=== PATIENT | female | born 1970 | race Caucasian/White ===

== ENCOUNTER → 2023-03-26 | Outpatient (CLI) | payer OTHER | END | disposition home or self-care (01) | LOC: LAB 10:00 | PROVIDERS: ATTEND Obstetrics & Gynecology | DX: R87.810 Cervical high risk human papillomavirus (HPV) DNA test positive (principal) ==

== ENCOUNTER 2023-04-28 14:57 | Emergency (ER) | payer OTHER ==
[~2023-04-28] VITALS: Ht 167.6 cm; Wt 64.2 kg
[2023-04-28 15:30] LABS: Urine Bacteria FEW /hpf (None Seen); Urine Blood Negative /uL (Negative); Urine Clarity Clear (Clear); Urine Color Yellow (Yellow); Urine Protein, UAD Negative (Negative); Urine Specific Gravity 1.025 (1.001-1.035); Urine WBC 5 /hpf (0 - 5)
[2023-04-28 16:18] VITALS: BP 110/64; PULSE 99; RESP 18; TEMP 99.3; O2SAT 96
[2023-04-28] MEDS ORDERED: CEPH500C PO (16:30)
== END 2023-04-28 16:38 | disposition home or self-care (01) ==
LOC: ER 14:57
DX: J02.9 Acute pharyngitis, unspecified (principal); T36.3X5A Adverse effect of macrolides, initial encounter; Z79.899 Other long term (current) drug therapy; Y92.89 Other specified places as the place of occurrence of the external cause
CPT/HCPCS: 81001

== ENCOUNTER 2024-08-29 08:33 | Emergency (ER) | payer OTHER ==
[~2024-08-29] VITALS: Ht 167.6 cm; Wt 62.0 kg
[~2024-08-29 08:33] MED LIST: CEPH500C PO
[2024-08-29 08:55] VITALS: BP 124/66; PULSE 77; RESP 18; TEMP 97.6; O2SAT 99
--- NOTE | 2024-08-29 09:05 | ED.PDOC ---
History of Present Illness(SKN HPI Comments A 54 YEAR OLD FEMALE PRESENTS TO THE ED WITH COMPLAINT OF SORES ON SCALP AND RASH. PATIENT STATES SHE HAS HAD SORE ON HER SCALP AND A RASH ON HER NECK AND UPPER CHEST FOR THE PAST 7 MONTHS. PATIENT REPORTS SHE HAS WENT TO SEVERAL [facility]ENT [facility] AND A [facility] WHERE SHE WAS PRESCRIBED SEVERAL CREAMS, BUT NOTES THERE HAS BEEN NO IMPROVEMENT IN HER SYMPTOMS. PATIENT DENIES FEVER, CHILLS, SHORTNESS OF BREATH, CHEST PAIN, ABDOMINAL PAIN, NAUSEA, VOMITING, HEADACHE, OR OTHER COMPLAINTS. NO OTHER SYMPTOMS OR MODIFYING FACTORS AT THIS TIME. PATIENT IS ALERT, ORIENTED X 4, AND HAS STEADY GAIT. Chief Complaint: Wound Check Time Seen by MD: 08:47 Primary Care Provider: UNKOWN History of Present Illness: Nurses Notes, Medications, Allergies Allergies: Coded Allergies: NO KNOWN ALLERGIES (Unverified , 04/28/23) Home Meds Active Scripts Methylprednisolone (Medrol Dosepak) 4 Mg Peyman, 4 MG PO UD, #21 TAB UAD Prov:BRONWYN FONG 08/29/24 Cephalexin Monohydrate (Cephalexin) 500 Mg Cap, 1 CAP PO TID, #30 CAP Prov:BRONWYN FONG 08/29/24 Clobetasol Propionate (Clobetasol Propionate) 0.05 % Oin, 1 APPLIC TOP BID, #30 GRAMS 1 Refill Prov:BRONWYN FONG 08/29/24 Cephalexin Monohydrate (Cephalexin) 500 Mg Cap, 1 CAP PO TID, #24 CAP Prov:BRONWYN FONG 04/28/23 Discontinued Scripts Methylprednisolone (Medrol Dosepak) 4 Mg Peyman, 4 MG PO UD, #21 TAB UAD Prov:BRONWYN FONG 08/29/24 Cephalexin Monohydrate (Cephalexin) 500 Mg Cap, 1 CAP PO QID, #40 CAP Prov:BRONWYN FONG 08/29/24 Information Source: Patient Mode of Arrival: Ambulatory Severity: Moderate Timing: Months Duration: Intermittent Prehospital treatment: None Location: Head (SCALP) Mechanism: Spontaneous Onset Developed: Rash Occurence: Indoors Object: None Condition of Object: None Retained Foreign Body: No Wound Type: Other (SORES) Immunization Status of Animal: Current, NA Tetanus: UTD, Unknown History of: None Associated Signs and Symptoms: Redness, Pain Past Medical History PAST MEDICAL HISTORY: Denies Surgical History: Denies all surgeries SEWER REPAIRER 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: No Pertinent SEWER REPAIRER History Family History Family History: Reviewed,noncontributory to illness Social History Smoker: Non-Smoker Alcohol: Denies ETOH Use Drugs: Denies Drug Use Lives In: Home Constitutional: denies: chills, diaphoresis, fatigue, fever, malaise, sweats, weakness, others EENTM: denies: blurred vision, double vision, ear bleeding, ear discharge, ear drainage, ear pain, ear ringing, eye pain, eye redness, hearing loss, mouth pain, mouth swelling, nasal discharge, nose bleeding, nose congestion, nose pain, photophobia, tearing, throat pain, throat swelling, voice changes, others Respiratory: denies: cough, hemoptysis, orthopnea, SOB at rest, shortness of breath, SOB with excertion, stridor, wheezing, others Cardiovascular: denies: chest pain, dizzy spells, diaphoresis, Dyspnea on exertion, edema, irregular heart beat, left arm pain, lightheadedness, palpitations, PND, syncope, others Gastrointestinal: denies: abdomen distended, abdominal pain, blood streaked bowels, constipated, diarrhea, dysphagia, difficulty swallowing, hematemesis, melena, nausea, poor appetite, poor fluid intake, rectal bleeding, rectal pain, vomiting, others Genitourinary: denies: abnormal vagina bleeding, burning, dyspareunia, dysuria, flank pain, frequency, hematuria, incontinence, pain, , vagina discharge, urgency, others Neurological: denies: dizziness, fainting, headache, left sided numbness, left sided weakness, numbness, paresthesia, pre-existing deficit, right sided num bness, right sided weakness, seizure, speech problems, tingling, tremors, weakness, others Musculoskeletal: denies: back pain, gout, joint pain, joint swelling, muscle pain, muscle stiffness, neck pain, others Integumetry: reports: rash (RASH OF UPPER CHEST AND NECK), wounds (SORES ON SCALP); denies: bruises, change in color, change in hair/nails, dryness, laceration, lesions, lumps, others Allergic/Immunocompromised: reports: Hives; denies: Difficulty Healing, Frequent Infections, Itching, others Endocrine: denies: excessive hunger, excessive sweating, excessive thirst, excessive urination, flushing, intolerance to cold, intolerance to heat, unexplained weight gain, unexplained weight loss, others Psychiatric: reports: anxiety; denies: bipolar disorder, depression, hopeless, panic disorder, schizophrenia, sleepless, suicidal, others All Other Systems: Reviewed and Negative Physical Exam General Appearance: No Apparent Distress, Normal, Other (ANXIOUS ) HEENT: Normal ENT Inspection, PERRL/EOMI, Pharynx Normal, TMs Normal Neck: Full Range of Motion, Non-Tender, Normal, Normal Inspection Respiratory: Chest Non-Tender, Lungs Clear, No Accessory Muscle Use, No Respiratory Distress, Normal Breath Sounds Cardiovascular: No Edema, No JVD, No Murmur, No Gallop, Normal Peripheral Pulses, Regular Rate/Rhythm Breast Exam: Deferred Gastrointestinal: No Organomegaly, Non Tender, No Pulsatile Mass, Normal Bowel Sounds, Soft Genitalia: Deferred Pelvic: Deferred Rectal: Deferred Extremities: No calf tenderness, Normal capillary refill, Normal inspection, Normal range of motion, Non-tender, No pedal edema Musculoskeletal : Apperance: Normal Neurologic: Alert, stitcher feeder II-XII nml as Tested, No Motor Deficits, Normal Affect, Normal Mood, No Sensory Deficits Cerebellar Function: Normal Reflexes: Normal Skin: Dry, Rash (ERYTHEMA PATCH SKIN RASH ON SIDE NECK WALL AND UPPER CHEST WALL, NO TENDERNESS AND SWELLING. PAPULAR AND MACULAR SKIN RASH ON SCALP WIKTH TENDERNESS AND MILD SWELLING, FOLLICULITIS. ), Warm Peripheral Pulses: 2+ carotid (R), 2+ carotid (L), 2+ dorsalis pedis (R), 2+ dorsalis pedis (L) Lymphatic: No Adenopathy Was a procedure done? Was a procedure done?: No Differential Diagnosis (INTG) Differential Diagnosis: Abrasion, Cellulitis, Contusion, Insect Envenomation, Puncture Wound Differential Diagnosis: Atopic dermatitis, Contact Dermatitis, Impetigo, Intertrigo, Tinea, Urticaria Differential Diagnosis: Abrasion, N/A Abscess: N/A Differential Diagnosis: N/A X-Ray, Labs, Meds, VS Vital Signs Date Time Temp Pulse Resp B/P (MAP) Pulse Ox O2 Delivery O2 Flow Rate FiO2 08/29/24 08:55 77 18 99 Room Air 08/29/24 08:55 97.6 77 18 124/66 (85) 99 97.6 08/29/24 08:43 97.6 77 18 124/66 (85) 99 Lab Test 08/29/24 09:08 Range/Units White Blood Count 11.4 H 4.4-10.8 10^3/uL Red Blood Count 5.25 H 4.0-5.20 10^6/uL Hemoglobin 16.0 12.2-16.2 g/dL Hematocrit 46.2 H 36.0-46.0 % Mean Corpuscular Volume 88.0 80.0-100.0 fL Mean Corpuscular Hemoglobin 30.5 28.0-32.0 pg Mean Corpuscular Hemoglobin Concent 34.6 32.0-36.0 g/dL Red Cell Distribution Width 13.6 11.8-14.3 % Platelet Count 368 140-450 10^3/uL Mean Platelet Volume 8.0 6.9-10.8 fL Neutrophils (%) (Auto) 44.7 37.0-80.0 % Lymphocytes (%) (Auto) 39.7 10.0-50.0 % Monocytes (%) (Auto) 10.9 0.0-12.0 % Eosinophils (%) (Auto) 3.8 0.0-7.0 % Basophils (%) (Auto) 0.9 0.0-2.0 % Neutrophils # (Auto) 5.1 1.6-8.6 10 ^3/uL Lymphocytes # (Auto) 4.5 0.4-5.4 10 ^3/uL Monocytes # (Auto) 1.2 0-1.3 10 ^3/uL Eosinophils # (Auto) 0.4 0-0.8 10 ^3/uL Basophils # (Auto) 0.1 0-0.2 10 ^3/uL Nucleated Red Blood Cells 0.1 % Sodium Level 140 136-145 mmol/L Potassium Level 3.9 3.5-5.1 mmol/L Chloride Level 109 H 98-107 mmol/L Carbon Dioxide Level 27 20-31 mmol/L Anion Gap 4 L 5-15 Blood Urea Nitrogen 21 9-23 mg/dL Creatinine 0.82 0.550-1.02 mg/dL Glomerular Filtration Rate Calc 85 >90 mL/min BUN/Creatinine Ratio 25.6 H 10.0-20.0 Serum Glucose 89 74-106 mg/dL Calcium Level 10.1 8.7-10.4 mg/dL X-Ray, Labs, Meds, VS Comment EXTERNAL MEDICAL RECORDS REVIEWED: [NONE] INDEPENDENT HISTORIANS: [NONE] SOCIAL DETERMINANTS OF HEALTH: [NONE] LABS ORDERED: CBC, BMP REVIEWED AND INTERPRETED RESULTS: WBC 11.4 IMAGING ORDERED: NONE TREATMENTS ORDERED: NO PROCEDURES PERFORMED: NONE CRITICAL CARE TIME: NONE I HAVE DISCUSSED THE PATIENT WITH THE ATTENDING PHYSICIAN DR. POWELL AND HE AGREES WITH THE PATIENT'S PLAN OF CARE AND DISPOSITION. BASED ON HISTORY OF PRESENT ILLNESS, AND PHYSICAL EXAM, PATIENT WILL BE DISCHARGED HOME. DISCUSSED PLAN FOR DISCHARGE HOME WITH RX []. MEDICATION WARNINGS GIVEN. SHARED DECISION MAKING: PATIENT INSTRUCTED TO FOLLOW UP WITH PRIMARY CARE PROVIDER IN 1-2 DAYS FOR RE-EVALUATION OF SYMPTOMS. PATIENT VERBALIZES UNDERSTAN DING TO RETURN TO ED FOR NEW OR WORSENING SYMPTOMS OR IF FOLLOW UP WITH PCP CANNOT BE OBTAINED. PATIENT FEELS COMFORTABLE GOING HOME AT THIS TIME. ALL QUESTIONS ADDRESSED AT TIME OF DISCHARGE. Time of 1ST Reevaluation: 10:07 Reevaluation 1ST: Improved Patient Education/Counseling: Diagnosis, Treatment, Need For Follow Up Family Education/Counseling: Diagnosis, Treatment, Need For Follow Up Medical Screening: No EMC Exist At This Time Departure 1 Departure Time of Disposition: 10:07 Impression: Primary Impression: Allergic reaction Qualified Codes: T78.40XA - Allergy, unspecified, initial encounter Additional Impression: Folliculitis Disposition: HOME / SELF CARE / HOMELESS Condition: Stable Additional Instructions: FOLLOW-UP WITH PCP IN 1 TO 2 DAYS. TAKE MEDICATIONS PRESCRIBED. RETURN TO ED FOR ANY NEW OR WORSENING SYMPTOMS. e-Prescriptions Methylprednisolone (Medrol Dosepak) 4 Mg Peyman 4 MG PO UD, #21 TAB UAD Prov: BRONWYN FONG 08/29/24 Cephalexin Monohydrate (Cephalexin) 500 Mg Cap 1 CAP PO TID, #30 CAP Prov: BRONWYN FONG 08/29/24 Clobetasol Propionate (Clobetasol Propionate) 0.05 % Oin 1 APPLIC TOP BID, #30 GRAMS 1 Refill Prov: BRONWYN FONG 08/29/24 Discharged With: Self Critical Care Note Critical Care Time?: No Stability Stability form required: No I personally scribed for BRONWYN FONG ([email or web address]) on 08/29/24 at 09:05. Electronically submitted by Joesph Zheng ([email or web address]). I personally scribed for BRONWYN FONG ([email or web address]) on 08/29/24 at 09:08. Electronically submitted by Joesph Zheng ([email or web address]). I personally scribed for BRONWYN FONG ([email or web address]) on 08/29/24 at 09:57. Electronically submitted by Joesph Zheng ([email or web address]). I personally scribed for BRONWYN FONG ([email or web address]) on 08/29/24 at 10:04. Electronically submitted by Joesph Zheng ([email or web address]). BRONWYN FONG Aug 29, 2024 09:05
[2024-08-29 09:32] LABS: Basophils # (auto) 0.1 10 ^3/uL (0-0.2); Basophils % (auto) 0.9 % (0.0-2.0); Eosinophils # (auto) 0.4 10 ^3/uL (0-0.8); Eosinophils % (auto) 3.8 % (0.0-7.0); Hematocrit 46.2 % (36.0-46.0); Lymphocytes # (auto) 4.5 10 ^3/uL (0.4-5.4); Lymphocytes % (auto) 39.7 % (10.0-50.0); Mean Corpuscular Hemoglobin 30.5 pg (28.0-32.0); Mean Corpuscular Hgb Conc. 34.6 g/dL (32.0-36.0); Monocytes # (auto) 1.2 10 ^3/uL (0-1.3); Monocytes % (auto) 10.9 % (0.0-12.0); Neutrophils # (auto) 5.1 10 ^3/uL (1.6-8.6); Neutrophils % (auto) 44.7 % (37.0-80.0); Nucleated Red Blood Cells % 0.1 %; Platelet Count (auto) 368 10^3/uL (140-450); Red Blood Cells 5.25 10^6/uL (4.0-5.20); Red Cell Distribution Width 13.6 % (11.8-14.3); White Blood Cell 11.4 10^3/uL (4.4-10.8)
[2024-08-29 09:49] LABS: Potassium 3.9 mmol/L (3.5-5.1); Sodium 140 mmol/L (136-145)
[2024-08-29 09:50] LABS: Anion Gap 4 (5-15); Calcium 10.1 mg/dL (8.7-10.4); Carbon Dioxide 27 mmol/L (20-31)
[2024-08-29 09:51] LABS: Chloride 109 mmol/L (98-107)
[2024-08-29] MEDS ORDERED: INDO50CA82 PO (09:54)
[2024-08-29] MEDS ORDERED: METH4PAK PO (09:54)
[2024-08-29] MEDS ORDERED: CEPH500C PO (09:54)
[2024-08-29 09:55] LABS: BUN/Creatinine Ratio 25.6 (10.0-20.0); Blood Urea Nitrogen 21 mg/dL (9-23); Glucose 89 mg/dL (74-106)
[2024-08-29] MEDS ORDERED: CLOB0.05 TOP (10:05)
== END 2024-08-29 10:10 | disposition home or self-care (01) ==
LOC: ER 08:33
DX: T78.49XA Other allergy, initial encounter (principal); L73.9 Follicular disorder, unspecified; X58.XXXA Exposure to other specified factors, initial encounter
CPT/HCPCS: 36415; 80048; 85025

== ENCOUNTER 2024-09-24 07:55 | Emergency (ER) | payer OTHER ==
[~2024-09-24] VITALS: Ht 167.6 cm; Wt 66.8 kg
[~2024-09-24 07:55] MED LIST changes: +CLOB0.05 TOP; +METH4PAK PO
[2024-09-24 08:23] VITALS: PULSE 107; RESP 16; O2SAT 98
[2024-09-24 08:24] LABS: Basophils # (auto) 0.1 10 ^3/uL (0-0.2); Basophils % (auto) 0.9 % (0.0-2.0); Eosinophils # (auto) 0.3 10 ^3/uL (0-0.8); Eosinophils % (auto) 2.9 % (0.0-7.0); Hematocrit 47.9 % (36.0-46.0); Hemoglobin 16.5 g/dL (12.2-16.2); Lymphocytes # (auto) 3.1 10 ^3/uL (0.4-5.4); Lymphocytes % (auto) 34.9 % (10.0-50.0); Mean Corpuscular Hemoglobin 30.5 pg (28.0-32.0); Mean Corpuscular Hgb Conc. 34.5 g/dL (32.0-36.0); Mean Corpuscular Volume 88.4 fL (80.0-100.0); Monocytes # (auto) 0.8 10 ^3/uL (0-1.3); Monocytes % (auto) 8.4 % (0.0-12.0); Neutrophils # (auto) 4.7 10 ^3/uL (1.6-8.6); Neutrophils % (auto) 52.9 % (37.0-80.0); Platelet Count (auto) 407 10^3/uL (140-450); Red Blood Cells 5.42 10^6/uL (4.0-5.20); Red Cell Distribution Width 13.8 % (11.8-14.3)
[2024-09-24 08:38] LABS: Alanine Aminotransferase 11 U/L (7-40); Alkaline Phosphatase 84 U/L (46-116); Anion Gap 5 (5-15); Calcium 10.3 mg/dL (8.7-10.4); Carbon Dioxide 27 mmol/L (20-31); Chloride 106 mmol/L (98-107); Glucose 100 mg/dL (74-106); Potassium 4.2 mmol/L (3.5-5.1); Sodium 138 mmol/L (136-145)
[2024-09-24 08:39] LABS: Bilirubin, Total 0.4 mg/dL (0.2-1.0); Blood Urea Nitrogen 15 mg/dL (9-23)
[2024-09-24 08:40] LABS: Albumin 5.1 g/dL (3.2-4.8); Aspartate Aminotransferase 12 U/L (13-40)
[2024-09-24 08:59] LABS: Urine Bacteria None Seen /hpf (None Seen)
[2024-09-24] MEDS: FAMOTIDINE 20 MG TAB PO ONE (09:05)
[2024-09-24] MEDS: ACETAMINOPHEN 325 MG TAB PO ONE (09:05)
[2024-09-24] MEDS: ONDANSETRON ODT 4 MG TAB PO ONE (09:05)
--- NOTE | 2024-09-24 09:16 | DVH ---
CHEST RADIOGRAPH Indication: chest pain Technique: Single frontal view of the chest was obtained Comparison: None FINDINGS: Lines and Tubes: None Lungs: No focal consolidation. Pleura: No effusion. No pneumothorax. Cardiomediastinal contours: Unremarkable Bones: No acute osseous abnormality. IMPRESSION: 1. No acute cardiopulmonary disease.
--- NOTE | 2024-09-24 09:21 | ED.PDOC ---
HPI Comments 54Y F presents to ED with chief complaint chest pain x6hrs. Pt states chest pain is substernal and radiates to right arm. Pt describes chest pain as "someone stepping" on her chest. Additional symptom includes chills. Pt denies SOB, cough, and n/v/d. No other symptoms/history reported. Chief Complaint: Chest Pain Time Seen by MD: 08:45 Primary Care Provider: HERMILO Reviewed Notes: Nurses Notes, Medications, Allergies Allergies: Coded Allergies: NO KNOWN ALLERGIES (Unverified , 04/28/23) Home Meds Active Scripts Methylprednisolone (Medrol Dosepak) 4 Mg Peyman, 4 MG PO UD, #21 TAB UAD Prov:BRONWYN FONG 08/29/24 Cephalexin Monohydrate (Cephalexin) 500 Mg Cap, 1 CAP PO TID, #30 CAP Prov:BRONWYN FONG 08/29/24 Clobetasol Propionate (Clobetasol Propionate) 0.05 % Oin, 1 APPLIC TOP BID, #30 GRAMS 1 Refill Prov:BRONWYN FONG 08/29/24 Cephalexin Monohydrate (Cephalexin) 500 Mg Cap, 1 CAP PO TID, #24 CAP Prov:BRONWYN FONG 04/28/23 Information Source: Patient Mode of Arrival: Ambulatory Severity: Mild Timing: Hours Duration: Since onset Prehospital treatment: None Location: Substernal Radiation: Arm (R) Quality: Other Onset: At Rest Cardiac Risk Factors: None PE Risk Factors: None History of: None Modifying Factors: Nothing Associated Signs and Symptoms: Other Past Medical History PAST MEDICAL HISTORY: Denies Surgical History: Denies all surgeries FREIGHT CAR CLEANER 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: No Pertinent FREIGHT CAR CLEANER History Family History Family History: Reviewed,noncontributory to illness Social History Smoker: Non-Smoker Alcohol: Denies ETOH Use Drugs: Denies Drug Use Lives In: Home Constitutional: reports: chills; denies: diaphoresis, fatigue, fever, malaise, sweats, weakness, others EENTM: denies: blurred vision, double vision, ear bleeding, ear discharge, ear drainage, ear pain, ear ringing, eye pain, eye redness, hearing loss, mouth pain, mouth swelling, nasal discharge, nose bleeding, nose congestion, nose pain, photophobia, tearing, throat pain, throat swelling, voice changes, others Respiratory: denies: cough, hemoptysis, orthopnea, SOB at rest, shortness of breath, SOB with excertion, stridor, wheezing, others Cardiovascular: reports: chest pain; denies: dizzy spells, diaphoresis, Dyspnea on exertion, edema, irregular heart beat, left arm pain, lightheadedness, palpitations, PND, syncope, others Gastrointestinal: denies: abdomen distended, abdominal pain, blood streaked bowels, constipated, diarrhea, dysphagia, difficulty swallowing, hematemesis, melena, nausea, poor appetite, poor fluid intake, rectal bleeding, rectal pain, vomiting, others Genitourinary: denies: abnormal vagina bleeding, burning, dyspareunia, dysuria, flank pain, frequency, hematuria, incontinence, pain, , vagina discharge, urgency, others Neurological: denies: dizziness, fainting, headache, left sided numbness, left sided weakness, numbness, paresthesia, pre-existing deficit, right sided numbness, right sided weakness, seizure, speech problems, tingling, tremors, weakness, others Musculoskeletal: reports: others (rt arm pain); denies: back pain, gout, joint pain, joint swelling, muscle pain, muscle stiffness, neck pain Integumetry: denies: bruises, change in color, change in hair/nails, dryness, laceration, lesions, lumps, rash, wounds, others Allergic/Immunocompromised: denies: Difficulty Healing, Frequent Infections, Hives, Itching, others Hematologic/Lymphatic: denies: anemia, blood clots, easy bleeding, easy bruising, swollen glands, others Endocrine: denies: excessive hunger, excessive sweating, excessive thirst, excessive urination, flushing, intolerance to cold, intolerance to heat, unexplained weight gain, unexplained weight loss, others Psychiatric: denies: anxiety, bipolar disorder, depression, hopeless, panic disorder, schizophrenia, sleepless, suicidal, others All Other Systems: Reviewed and Negative Physical Exam General Appearance: No Apparent Distress, Normal HEENT: Normal ENT Inspection, Pharynx Normal, TMs Normal Neck: Full Range of Motion, Non-Tender, Normal, Normal Inspection Respiratory: Chest Non-Tender, Lungs Clear, No Accessory Muscle Use, No Respiratory Distress, Normal Breath Sounds Cardiovascular: No Edema, No JVD, No Murmur, No Gallop, Normal Peripheral Pulses, Regular Rate/Rhythm Breast Exam: Deferred Gastrointestinal: No Organomegaly, Non Tender, No Pulsatile Mass, Normal Bowel Sounds, Soft Genitalia: Deferred Pelvic: Deferred Rectal: Deferred Extremities: No calf tenderness, Normal capillary refill, Normal inspection, Normal range of motion, Non-tender, No pedal edema Musculoskeletal : Apperance: Normal Neurologic: Alert, supervisor building 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 Was a procedure done?: No CP Differential Dx Differential Diagnosis: Anxiety / Panic Attack X-Ray, Labs, Meds, VS Vital Signs Date Time Temp Pulse Resp B/P (MAP) Pulse Ox O2 Delivery O2 Flow Rate FiO2 09/24/24 10:56 74 09/24/24 08:55 77 09/24/24 08:23 97.2 107 16 118/82 (94) 98 97.2 09/24/24 08:23 107 16 98 Room Air* 0 21 09/24/24 08:07 91 09/24/24 08:00 98.9 93 18 132/78 (96) 99 98.9 Lab Test 09/24/24 11:07 09/24/24 09:14 09/24/24 08:10 09/24/24 08:07 Range/Units Troponin I High Sensitivity Pending < 3 L < 3 L </=34 ng/L White Blood Count 9.0 4.4-10.8 10^3/uL Red Blood Count 5.42 H 4.0-5.20 10^6/uL Hemoglobin 16.5 H 12.2-16.2 g/dL Hematocrit 47.9 H 36.0-46.0 % Mean Corpuscular Volume 88.4 80.0-100.0 fL Mean Corpuscular Hemoglobin 30.5 28.0-32.0 pg Mean Corpuscular Hemoglobin Concent 34.5 32.0-36.0 g/dL Red Cell Distribution Width 13.8 11.8-14.3 % Platelet Count 407 140-450 10^3/uL Mean Platelet Volume 7.8 6.9-10.8 fL Neutrophils (%) (Auto) 52.9 37.0-80.0 % Lymphocytes (%) (Auto) 34.9 10.0-50.0 % Monocytes (%) (Auto) 8.4 0.0-12.0 % Eosinophils (%) (Auto) 2.9 0.0-7.0 % Basophils (%) (Auto) 0.9 0.0-2.0 % Neutrophils # (Auto) 4.7 1.6-8.6 10 ^3/uL Lymphocytes # (Auto) 3.1 0.4-5.4 10 ^3/uL Monocytes # (Auto) 0.8 0-1.3 10 ^3/uL Eosinophils # (Auto) 0.3 0-0.8 10 ^3/uL Basophils # (Auto) 0.1 0-0.2 10 ^3/uL Nucleated Red Blood Cells 0.0 % Sodium Level 138 136-145 mmol/L Potassium Level 4.2 3.5-5.1 mmol/L Chloride Level 106 98-107 mmol/L Carbon Dioxide Level 27 20-31 mmol/L Anion Gap 5 5-15 Blood Urea Nitrogen 15 9-23 mg/dL Creatinine 0.75 0.550-1.02 mg/dL Glomerular Filtration Rate Calc 95 >90 mL/min BUN/Creatinine Ratio 20.0 10.0-20.0 Serum Glucose 100 74-106 mg/dL Calcium Level 10.3 8.7-10.4 mg/dL Total Bilirubin 0.4 0.2-1.0 mg/dL Aspartate Amino Transferase (AST) 12 L 13-40 U/L Alanine Aminotransferase (ALT) 11 7-40 U/L Alkaline Phosphatase 84 46-116 U/L Total Protein 8.0 5.7-8.2 g/dL Albumin 5.1 H 3.2-4.8 g/dL Urine Color Light-yellow Yellow Urine Clarity Clear Clear Urine pH 7.0 5.0-9.0 Urine Specific [place] 1.011 1.001-1.035 Urine Protein Negative Negative Urine Ketones Negative Negative Urine Blood Negative Negative /uL Urine Nitrite Negative Negative Urine Bilirubin Negative Negative Urine Urobilinogen Normal Negative mg/dL Urine Leukocyte Esterase Trace Negative /uL Urine RBC 1 0 - 4 /hpf Urine Microscopic WBC 1 0-5 /HPF Urine Squamous Epithelial Cells Few <5 /hpf Urine Bacteria None seen None Seen /hpf Urine Glucose Normal Normal mg/dL Current Medications Medications (Trade) Dose Ordered Sig/Ciro Route Start Time Stop Time Status Last Admin Famotidine (Pepcid Tablet) 20 mg ONCE ONCE PO 09/24/24 09:00 09/24/24 09:01 DC 09/24/24 09:05 Acetaminophen (Tylenol Tablet) 650 mg ONCE ONCE PO 09/24/24 09:00 09/24/24 09:01 DC 09/24/24 09:05 Ondansetron HCl (Zofran Po) 4 mg ONCE ONCE PO 09/24/24 09:00 09/24/24 09:01 DC 09/24/24 09:05 [place] [id number] Ph: [phone] DIAGNOSTIC IMAGING Diagnostic Imaging Report : [id number] Signed PATIENT: LIZBETH VALADEZ ACCT: [id number] UNIT: [id number] : 1970 LOC: ER ROOM / BED: / AGE / SEX: 54 / F ADM STATUS: REG ER SERVICE 1 ORDERING PHYSICIAN: ARLINE ALEJANDRO MD PROCEDURE(s): CXRP - CHEST PORTABLE REASON: chest pain ORDER NUMBER(s): [id number], ACCESSION NUMBER(s): [id number] CHEST RADIOGRAPH Indication: chest pain Technique: Single frontal view of the chest was obtained Comparison: None FINDINGS: Lines and Tubes: None Lungs: No focal consolidation. Pleura: No effusion. No pneumothorax. Cardiomediastinal contours: Unremarkable Bones: No acute osseous abnormality. IMPRESSION: 1. No acute cardiopulmonary disease. ATED BY: OPAL ALVARENGA MD DICTATED DATE/TIME: 09/24/24913 SIGNED BY: OPAL ALVARENGA MD SIGNED DATE/TIME: 09/24/24913 CC: Time of 1ST Reevaluation: 09:15 Reevaluation 1ST: Unchanged Patient Education/Counseling: Diagnosis, Treatment Family Education/Counseling: No Family Present Departure 1 Departure Time of Disposition: 11:27 (Patient presented with chest pain that was concerning for possible STEMI, ACS, PE, Pneumonia, Muscle Strain, COPD, Dissection. Data: 1. I ordered and reviewed the result of at least 3 labs including a CBC, BMP, and Troponin. 2. I independently interpreted the following tests: EKG which shows normal sinus rhythm and Chest X-ray which shows a benign chest.Risk:This patient presented with a high risk of morbidity due to further diagnostic testing or treatment and may suffer from an acute cardiac or respiratory disorder. After review of all the data patient is unlikely to have a pe , dissection, and is low risk for acs. Patient is stable at this time.Workup so far is benign and patient will be discharged with outpatient followup. ) Impression: Primary Impression: Acute chest pain Disposition: HOME / SELF CARE / HOMELESS Condition: Stable Additional Instructions: You presented today with chest pain. Your workup today was benign including labs, troponin, EKG, chest x-ray. Your pain may be from musculoskeletal strain, acid reflux, anxiety, or many other factors. It is important to follow up with your regular doctor within 1 week. If your symptoms worsen or you have any other concerns please return to the [facility] room. Discharged With: Self Critical Care Note Critical Care Time?: Yes Critical care comment: Acute chest pain Authorized and Performed by: Arline Alejandro MD Total critical care time: Approximately 33 minutes Due to a high probability of clinically significant, life threatening deterioration, the patient required my highest level of preparedness to intervene emergently and I personally spent this critical care time directly and personally managing the patient. This critical care time included obtaining a history; examining the patient; pulse oximetry; ordering and review of studies; arranging urgent treatment with development of a management plan; evaluation of patient's response to treatment; frequent reassessment; and, discussions with other providers. This critical care time was performed to assess and manage the high probability of imminent, life-threatening deterioration that could result in multi-organ failure. It was exclusive of separately billable procedures and treating other patients and teaching time. Please see my other sections and the rest of the note for further information on patient assessment and treatment. Stability Stability form required: No Heart Score Heart Score: Heart Score Response (Comments) Value History Slightly Suspicious 0 EKG Normal 0 Age 45-64 1 Risk Factors No known risk factors 0 Troponin Normal limit 0 Total 1 I personally scribed for ARLINE ALEJANDRO MD ([email or web address]) on 09/24/24 at 09:21. Electronically submitted by Mandy Bermudez ([email or web address]). I personally scribed for ARLINE ALEJANDRO MD ([email or web address]) on 09/24/24 at 09:34. Electronically submitted by Mandy Bermudez ([email or web address]). ARLINE ALEJANDRO MD Sep 24, 2024 09:21
[2024-09-24 09:23] LABS: Urine Blood Negative /uL (Negative); Urine Clarity Clear (Clear); Urine Color Light-Yellow (Yellow); Urine Protein, UAD Negative (Negative); Urine Specific Gravity 1.011 (1.001-1.035); Urine Squamous Epithelial Cell FEW /hpf (<5); Urine Urobilinogen Normal (Negative); Urine WBC 1 /HPF (0-5)
[2024-09-24 11:36] VITALS: BP 101/65; PULSE 75; RESP 18; TEMP 98.6; O2SAT 98
--- NOTE | 2024-09-24 19:03 | ECG ---
[facility] Test Date: 2024-09-24 Test Time: 10:56:28 Pat Name: LIZBETH VALADEZ Department: ED Room: Gender: F Pill Maker: carmen : 1970 Requested By: ARLINE POWELL Order Number: [id number] Reading MD: Armand Reyes Measurements Intervals [place] Rate: 74 P: 55 OK: 128 QRS: 87 QRSD: 90 T: 62 QT: 376 QTc: 418 Interpretive Statements Sinus rhythm Anterior infarct, old ST elevation, consider inferior injury Electronically Signed On 09-24-2024 22:15:41 PDT by Armand Reyes Please click the below link to view image of tracing.
--- NOTE | 2024-09-25 10:53 | ECG ---
[facility] Test Date: 2024-09-24 Test Time: 08:07:58 Pat Name: LIZBETH VALADEZ Department: ER Room: Gender: F Inspector Floor: AVA : 1970 Requested By: ARLINE POWELL Order Number: [id number] Reading MD: Armand Reyes Measurements Intervals [place] Rate: 91 P: 82 OR: 127 QRS: 93 QRSD: 88 T: 62 QT: 355 QTc: 437 Interpretive Statements Sinus rhythm Biatrial enlargement Anterior infarct, old Electronically Signed On 09-26-2024 18:40:35 PDT by Armand Reyes Please click the below link to view image of tracing.
--- NOTE | 2024-09-25 10:53 | ECG ---
[facility] Test Date: 2024-09-24 Test Time: 08:55:29 Pat Name: LIZBETH VALADEZ Department: ER Room: Gender: F Panelbeater: LORENA : 1970 Requested By: ARLINE POWELL Order Number: [id number] Reading MD: Armand Reyes Measurements Intervals [place] Rate: 77 P: 54 ND: 124 QRS: 87 QRSD: 93 T: 70 QT: 373 QTc: 423 Interpretive Statements Sinus rhythm Anterior infarct, old ST elevation, consider inferior injury Electronically Signed On 09-26-2024 18:40:46 PDT by Armand Reyes Please click the below link to view image of tracing.
== END 2024-09-24 11:37 | disposition home or self-care (01) ==
LOC: ER 07:55
DX: R07.89 Other chest pain (principal)
CPT/HCPCS: 36415; 71045; 80053; 81001; 84484; 85025; 93005; 99285; Q0162

== ENCOUNTER 2025-01-06 14:45 | Inpatient (IN) | payer MEDICAID, OTHER ==
[~2025-01-06] VITALS: Ht 167.6 cm; Wt 72.7 kg
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
[2025-01-06] MEDS: ONDANSETRON HCL 4 MG/2 ML VIAL IV ONE ×2 (15:19→18:45)
[2025-01-06] MEDS: SODIUM CHLORIDE 0.9% 2,000 ML IV ONE (15:20)
[2025-01-06] MEDS: HYDROmorphone HCL 2 MG/ML VL/or syr IV ONE (15:20)
[2025-01-06 15:49] LABS: Hematocrit 48.5 % (36.0-46.0); Hemoglobin 16.0 g/dL (12.2-16.2); Mean Corpuscular Hemoglobin 29.8 pg (28.0-32.0); Mean Corpuscular Volume 90.0 fL (80.0-100.0); Nucleated Red Blood Cells % 0.2 %
[2025-01-06 15:58] LABS: Calcium 9.9 mg/dL (8.7-10.4)
[2025-01-06 16:00] LABS: Anion Gap 8 (5-15); Carbon Dioxide 20 mmol/L (20-31); Chloride 113 mmol/L (98-107); Potassium 4.1 mmol/L (3.5-5.1); Sodium 141 mmol/L (136-145)
[2025-01-06 16:03] LABS: BUN/Creatinine Ratio 13.1 (10.0-20.0); Blood Urea Nitrogen 11 mg/dL (9-23); Glucose 81 mg/dL (74-106)
--- NOTE | 2025-01-06 16:32 | DVH ---
CLINICAL INDICATION: fracture TECHNIQUE: XY R ANKLE 3 VIEW, XY R TIB FIB XRAY, XY R FOOT 3 VIEW XRAY Comparison: None FINDINGS/IMPRESSION: : Comminuted and displaced fracture of the distal fibular metaphysis. Displaced fracture of the medial malleolus. Disruption of the ankle mortise. Severe diffuse soft-tissue swelling of the ankle joint.
[2025-01-06 17:07] LABS: Urine Protein, UAD Negative (Negative)
[2025-01-06 17:18] LABS: Amphetamine Screen, Urine Neg (NEGATIVE); Barbiturate Scree,Urine Neg (NEGATIVE); Benzodiazephine Screen, Urine Neg (NEGATIVE); Cannabinoid Screen, Urine Neg (NEGATIVE); Cocaine Screen, Urine Neg (NEGATIVE); Opiate Scree,Urine Neg (NEGATIVE); Phencyclidine Screen, Urine Neg (NEGATIVE)
[2025-01-06] MEDS: MORPHINE SULFATE 4 MG/ML SYR/VIAL IV ONE (18:45)
[2025-01-06] MEDS: SODIUM CHLORIDE 0.9% 1,000 ML IV ONE ×2 (18:46→23:01)
[2025-01-06 19:49] VITALS: PULSE 88; RESP 16; O2SAT 98
[2025-01-06] MEDS ORDERED: ONDANSETRON HCL 4 MG/2 ML VIAL IV PRN (20:00)
[2025-01-06] MEDS ORDERED: ACETAMINOPHEN 325 MG TAB PO PRN (20:00)
[2025-01-06 20:19] LABS: INR 1.03 (0.9-1.15); Partial Thromboplastin Time 25.9 SEC (24.5-34.5); Prothrombin Time 10.9 sec (9.3-11.8)
[2025-01-06] MEDS: KETAMINE 50mg/ML 10ml Vial (500mg/10ml) IV ONE (20:30)
[2025-01-06] MEDS: MIDAZOLAM HCL 2MG/2ML 2ml VIAL (1mg/ml) IV ONE (20:49)
[2025-01-06] MEDS: MIDAZOLAM HCL 2MG/2ML 2ml VIAL (1mg/ml) ONE (20:49)
--- NOTE | 2025-01-06 21:03 | DVH ---
CLINICAL INDICATION: POST REDUCTION TECHNIQUE: 3 radiographic views of the right ankle were obtained. Comparison: XY R ANKLE 3 VIEW on DOS: 01/06/25 FINDINGS/IMPRESSION: Comminuted fracture distal fibula with the horizontal fracture minimally displaced through the medial malleolus. The ankle is in a posterior splint.
--- NOTE | 2025-01-06 21:04 | DVHINCON2 ---
Consult Note Consult Consult Note Reason for Consultation Evaluation and management of bilateral malleolar fracture dislocation following trauma. Request for orthopedic intervention --- History of Present Illness Patient presented to the Emergency Department with acute trauma to the R ankle. Evaluation revealed R bi malleolar fractures dislocation. The patient denied any open wounds or bleeding at the time of injury. Noted ecchymosis on the medial malleolus Patient reports significant pain and inability to move the right ankle or WB. Moderate swelling over the right ankle was noted. Neurovascular examination was grossly intact at the time of initial ED assessment. No other associated injuries were reported. Case discussed with on-call orthopedic surgeon, Dr. Johnson. Recommendation was to proceed with closed reduction and stabilization w/ leg splint and surgery for tomorrow. --- Past Medical History History of smoking No known history of cardiac disease No known pulmonary disease No diabetes, anticoagulation, or prior orthopedic history reported --- Physical Examination General: Alert, oriented 3, in mild distress due to pain Right Ankle: Moderate swelling Ecchymosis over medial malleolus and black discoloration over medial mall pea size with no skin opening or bleeding or bone visible Deformity consistent with dislocation No open wounds or skin tenting Tenderness on palpation diffuse ankle Unable to actively move the ankle due to pain Neurovascular: Distal pulses palpable Capillary refill <2 seconds Intact sensation and motor function --- Emergency Department Course Reduction of the right ankle fracture dislocation was performed under ketamine sedation, administered and monitored by the ED physician with electronic engineering technician in place. Post-reduction X-ray demonstrated satisfactory realignment. A bulky L and U splint was applied. Pain well controlled after the procedure. The patient tolerated the reduction well and remained alert and oriented, with stable vital signs. --- Assessment 1. Bilateral Malleolar Fractures closed 2. Right ankle fracture Dislocation post-reduction, stable 3. Moderate right ankle swelling, post-traumatic 4. History of tobacco use 5. Medically stable for surgery pending inpatient clearance --- Plan RECOMMENDATION FOR ER Admit patient for inpatient management NPO after midnight Place consent for Open Reduction and Internal Fixation (ORIF) of right ankle, scheduled for tomorrow around [address] Johnson Maintain right lower extremity in bulky splint [id number] on the right leg Encourage wheelchair use or crutches, as tolerated Post-reduction X-ray shows good alignment no further immediate intervention needed Hospitalist to provide medical clearance for surgery Monitor for compartment syndrome, neurovascular compromise, or increasing pain/swelling in ER and while inpatient Continue pain management and supportive care Plan discussed with: Patient, Other (bed side nurse, physician) Visit Coding Surgery Date of Service if different f: Jan 06, 2025 Billing Provider: NARESH BATEMAN Surgery Visit Codes: 35550 - INP CONSULT <55 MIN NARESH BATEMAN Jan 06, 2025 21:04
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
[2025-01-06 22:22] VITALS: BP 132/72; PULSE 71; RESP 17; TEMP 99.1; O2SAT 95
[2025-01-06 22:44] VITALS: BP 132/72; PULSE 71; RESP 17; TEMP 99.1; O2SAT 95
[2025-01-06] MEDS: TEMAZEPAM 15 MG CAP PO ONE (22:50)
[2025-01-06] MEDS: MORPHINE SULFATE INJ 2 MG/ml SYRG IV PRN (22:51)
[2025-01-07] VITALS (8 sets, daily range): BP systolic 103–109; BP diastolic 50–69; PULSE 72–104; RESP 17–18; TEMP 97–99.1; O2SAT 94–100
--- NOTE | 2025-01-07 06:46 | DVH ---
CHEST RADIOGRAPH Indication: Preop Technique: Single frontal view of the chest was obtained COMPARISON: XY CHEST PORTABLE on DOS: 09/24/24 FINDINGS: Lines and Tubes: None Lungs: Clear Pleura: No effusion. No pneumothorax. Cardiomediastinal contours: Unremarkable Bones: Unremarkable IMPRESSION: 1. No acute disease.
[2025-01-07 07:36] LABS: Potassium 3.9 mmol/L (3.5-5.1); Sodium 142 mmol/L (136-145)
[2025-01-07 07:37] LABS: Anion Gap 5 (5-15); Calcium 9.2 mg/dL (8.7-10.4); Carbon Dioxide 24 mmol/L (20-31)
[2025-01-07 07:42] LABS: BUN/Creatinine Ratio 13.1 (10.0-20.0); Glucose 74 mg/dL (74-106)
[2025-01-07 07:43] LABS: Blood Urea Nitrogen 8 mg/dL (9-23); Chloride 113 mmol/L (98-107)
--- NOTE | 2025-01-07 15:28 | DVHPN2 ---
Subjective Patient continues to report having ankle pain Reviewed: Care Plan, H&P, Labs, Medications Changes from previous H/P or p: No Changes General: Per HPI Objective Vitals Vital Signs Date Time Temp Pulse Resp B/P (MAP) Pulse Ox O2 Delivery O2 Flow Rate FiO2 01/07/25 13:00 98.0 72 18 105/50 (68) 96 98.0 01/06/25 22:44 Nasal Cannula* 2 28 Intake/Output Intake and Output 01/07/25 07:00 Intake Total 1100 ml Output Total 2300 ml Balance -1200 ml Intake Oral 100 ml IV Total 1000 ml Output Urine Total 2300 ml General Appearance: Alert, Oriented X3, Cooperative, No acute distress HEENT: Atraumatic, PERRLA Lungs: Clear to auscultation, Normal air movement Cardiovascular: Normal S1, Normal S2 Abdomen: Normal bowel sounds, Soft, No tenderness, No hepatospenomegaly Musculoskeletal: Normal sensory function, Normal motor function Skin: Dry, Intact Psych/Mental Status: Mental status NL, Mood NL Medications Current Medications Medications Dose Ordered Sig/Ciro Route Start Time Stop Time Status Last Admin Dose Admin Acetaminophen/ Hydrocodone Bitart 1 tab Q4HP PRN PO 01/06/25 20:00 Temazepam 15 mg QHSP PRN PO 01/06/25 20:00 Ondansetron HCl 4 mg Q4HP PRN IV 01/06/25 20:00 Acetaminophen 650 mg Q6HP PRN PO 01/06/25 20:00 Morphine Sulfate 2 mg Q4HPRN PRN IV 01/06/25 20:00 01/07/25 10:55 2 MG Folic Acid 1 mg/ Multivitamins 10 ml/Magnesium Sulfate 8 meq/ Thiamine HCl 100 mg/Dextrose 1,013.2 ml @ 125.001 mls/hr DAILY@1800 INJ 01/07/25 18:00 Laboratory Results Laboratory Tests 01/06/25 15:04 01/07/25 05:30 Chemistry Test 01/07/25 05:30 Calcium Level 9.2 mg/dL (8.7-10.4) Coagulation Test 01/06/25 19:55 Prothrombin Time 10.9 sec (9.3-11.8) Prothrombin Time INR 1.03 (0.9-1.15) Activated Partial Thromboplast Time 25.9 SEC (24.5-34.5) Urinalysis Test 01/06/25 16:12 Urine Color Colorless (Yellow) Urine Clarity Clear (Clear) Urine pH 5.5 (5.0-9.0) Urine Specific [place] 1.005 (1.001-1.035) Urine Protein Negative (Negative) Urine Ketones Negative (Negative) Urine Blood Negative /uL (Negative) Urine Nitrite Negative (Negative) Urine Bilirubin Negative (Negative) Urine Urobilinogen Normal mg/dL (Negative) Urine Leukocyte Esterase Negative /uL (Negative) Urine RBC None seen /hpf (0 - 4) Urine Microscopic WBC < 1 /HPF (0-5) Urine Squamous Epithelial Cells Few /hpf (<5) Urine Bacteria None seen /hpf (None Seen) Urine Glucose Normal mg/dL (Normal) Labs and/or images reviewed: Labs reviewed by me, Image(s) reviewed by me Assessment/Plan Assessment/Plan Impression: -right bimalleolar fracture -? Alcoholism Plan: -orthopedic surgery consultation. Plans for surgery today -pain management -banana bag daily -repeat labs in a.m. Total time spent with patient discussing and formulating plan of care: 35 minutes. This medical document was created using an electronic medical record system with [employer] dictation system. Although this document has been carefully reviewed, there may still be some phonetic and typographical errors. These areas are purely typographical due to imperfections of the software programs, and do not reflect any compromise in the patient's medical care. Plan discussed with: Patient, Other (RN) My Orders Orders - MEENAKSHI RG NP Procedure Category Date Status Time Basic Metabolic Panel LAB 01/08/25 Verified 04:00 Complete Blood Count LAB 01/08/25 Verified 04:00 Folic Acid... PHA 01/07/25 In Process 18:00 Date of Service: Jan 07, 2025 Billing Provider: MEENAKSHI RG NP Common Visit Codes: [id number] INP/OBS CARE(HIGH) MEENAKSHI RG NP Jan 07, 2025 15:28
--- NOTE | 2025-01-07 15:35 | DVHOP2 ---
Operative Report - 2 Report Details Date: 01/07/25 Preop Diagnosis: Right Trimalleolar equivalent ankle fracture (lola with syndesmoitc disruption) Postop Diagnosis: Right Trimalleolar equivalent ankle fracture (lola with syndesmoitc disruption) Surgeon: Flaco Johnson MD Compliance Director: Tadeo VASQUEZ Anesthesiologist: Danyel AMAYA Anesthesia: General, Regional Implant: Arthrex Distal fibula nail with locking screw syndesmotic screw medial mal screw x 2 Consent: The patient was informed of the risks and benefits of the procedure. These include but are not limited to complications of anesthesia, postoperative infection, incomplete relief of symptoms, recurrence of symptoms, damage to blood vessels, nerves and tendons, deep venous thrombosis, pulmonary embolism and possible need for repeat surgery in the future. Estimated Blood Loss: 10 cc Name of Procedure Performed Open reduction internal fixation of right trimalleolar ankle fracture, without posterior lip fixation; intraop fluoro Procedure Details Procedure Details: GROSS FINDINGS: Include a comminuted fracture involving the medial and lateral malleolus with syndesmotic disruption so a trimal equivalent ankle fracture HISTORY OF PRESENT ILLNESS: Risks/benefits/options and alternatives were discussed in length. Risks associated with anesthesia, infection, damage to nerves and blood vessels, and bleeding or blood clots. Problems after ankle fracture surgery include ankle joint stiffness, weakness, need for further surgery and arthritis. Possible complications after ankle fracture surgery include infection and problems with healing. PROCEDURE: After all potential complications and risks as well as risks and benefits of the above-mentioned procedure was discussed at length with the patient and family, informed consent was obtained. The lower extremity was then confirmed with the operating surgeon, the patient, the nursing staff and Department of Anesthesia. The patient was then transferred to preoperative area in the Operative Suite and placed on the operating room table in supine position. At this time, the anesthesia was performed. All bony prominences were well padded at this time. A nonsterile tourniquet was placed on the left upper thigh of the patient. The lower extremity was sterilely prepped and draped in the usual sterile fashion. The right lower extremity was then elevated and exsanguinated using Esmarch and tourniquet was then placed to 250 mmHg. Next, after all bony and soft tissue landmarks were identified, a 2 cm longitudinal incision was made directly distal to the lateral mal fracture on the left ankle. Using guidewire we were able to percutaneously instrument the distal fibula. I clamped the distal fibula to hold it out to length. I then pass ed a guidewire which was checked under fluoro and appropriately reamed. Intraoperative fluoroscopy confirmed reduction.We then proceed with placement of fibula nail under fluroscopy. I then placed two k-wire pins in medial mal and 2 40 mm screws. I then locked nail distally and placed a syndesmotic screw to hold joint intact. Next Fluorsocpy was used to visualize the hardware placement as well as the fracture reduction appeared to be in good anatomic position, all hardware was in good position. There was no lateralization of the joints. At this time, each wound was copiously irrigated and suctioned dry. The wounds were then closed using #2-0 Vicryl suture in subcutaneous fashion followed by 3-0 nylon on the skin. A sterile dressing was applied consistent with Adaptic, 4x4s, Kerlix, and Webril. An ankle splint was then placed on the right lower extremity. The patient was transferred back to the [facility] and to the Postanesthetic Care Unit. The patient tolerated the procedure well. There were no co mplications. Condition Good Disposition Still a Patient FLACO JOHNSON MD Jan 07, 2025 15:35
--- NOTE | 2025-01-07 16:57 | DVH ---
EXAM: XY C ARM FLUOROSCOPY UP TO 60MIN, XY R ANKLE 2 VIEW XRAY HISTORY: ORIF RT ANKLE TECHNIQUE: Intraoperative radiographs of the right ankle were obtained. FLUOROSCOPY TIME: 33.7 seconds FLUOROSCOPY IMAGES: 15 TOTAL DOSE: 0.68 mGy COMPARISON: None FINDINGS/IMPRESSION: Refer to intraoperative report for further evaluation.
[2025-01-07] MEDS: FOLIC ACID 1 MG, MULTIPLE VITAMIN 10 ML, MAGNESIUM SULF SDV 50% 8 MEQ, THIAMINE INJ 100... INJ SCH (18:44)
[2025-01-07] MEDS: ceFAZolin 1GM/50ML 50 ML IV SCH (21:08)
[2025-01-07] MEDS: HYDROcodone-ACET 5/325MG TAB PO PRN (21:23)
[2025-01-07] MEDS: TEMAZEPAM 15 MG CAP PO PRN (22:31)
[2025-01-08 01:20] VITALS: BP 90/51; PULSE 69; RESP 17; TEMP 98.7; O2SAT 99
[2025-01-08 05:00] VITALS: BP 100/61; PULSE 65; RESP 18; TEMP 97.7; O2SAT 99
[2025-01-08 06:29] LABS: Anion Gap 6 (5-15); Calcium 9.8 mg/dL (8.7-10.4); Carbon Dioxide 25 mmol/L (20-31); Chloride 107 mmol/L (98-107); Potassium 4.2 mmol/L (3.5-5.1); Sodium 138 mmol/L (136-145)
[2025-01-08 06:31] LABS: Hematocrit 42.6 % (36.0-46.0); Hemoglobin 14.3 g/dL (12.2-16.2); Mean Corpuscular Hemoglobin 29.8 pg (28.0-32.0); Mean Corpuscular Volume 88.6 fL (80.0-100.0); Nucleated Red Blood Cells % 0.0 %
[2025-01-08 06:35] LABS: BUN/Creatinine Ratio 14.0 (10.0-20.0)
[2025-01-08 06:45] LABS: Blood Urea Nitrogen 8 mg/dL (9-23)
[2025-01-08 07:06] LABS: Glucose 143 mg/dL (74-106)
[2025-01-08] MEDS: ceFAZolin 2 GM/D5W50ml 50 ML IV ONE (07:12)
[2025-01-08 09:00] VITALS: BP 109/73; PULSE 70; RESP 17; TEMP 98.3; O2SAT 99
[2025-01-08] MEDS ORDERED: PERCOT PO (10:17)
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
[2025-01-08] MEDS: OXYCODONE W/ ACETAMINOPHEN 5/325MG TABLET PO PRN (11:15)
[2025-01-08 11:17] VITALS: BP 134/64; PULSE 87
[2025-01-08] MEDS ORDERED: OXYCODONE W/ ACETAMINOPHEN 5/325MG TABLET PO PRN (12:45)
[2025-01-08 13:00] VITALS: BP 122/91; PULSE 85; RESP 17; TEMP 99.2; O2SAT 97
[2025-01-08] MEDS: THIAMINE HCL 100 MG TAB PO ONE (13:00)
[2025-01-08] MEDS: MAGNESIUM OXIDE 400 MG TAB PO ONE (13:00)
[2025-01-08] MEDS: FOLIC ACID 1 MG TAB PO ONE (13:00)
[2025-01-08] MEDS: MULTIPLE VITAMIN TAB PO ONE (13:00)
[2025-01-09] MEDS ORDERED: MULTIPLE VITAMIN TAB PO SCH (10:00)
[2025-01-09] MEDS ORDERED: FOLIC ACID 1 MG TAB PO SCH (10:00)
[2025-01-09] MEDS ORDERED: THIAMINE HCL 100 MG TAB PO SCH (10:00)
[2025-01-09] MEDS ORDERED: MAGNESIUM OXIDE 400 MG TAB PO SCH (10:00)
== END 2025-01-08 13:41 | disposition home or self-care (01) | DRG 313 ==
LOC: EDBD 14:45 → ER 14:45 → OVERFLOW 19:43 → CENTRAL 22:22
PROVIDERS: ADMIT Nurse Practitioner Acute Care; ATTEND Nurse Practitioner Acute Care
PROC: 0QSG34Z Reposition Right Tibia with Internal Fixation Device, Percutaneous Approach (ICD-10-PCS; 2025-01-07)
PROC: 0QSJ34Z Reposition Right Fibula with Internal Fixation Device, Percutaneous Approach (ICD-10-PCS; principal; 2025-01-07 14:40)
DX: S82.851A Displaced trimalleolar fracture of right lower leg, initial encounter for closed fracture (principal); F10.229 Alcohol dependence with intoxication, unspecified; S93.01XA Subluxation of right ankle joint, initial encounter; Z87.891 Personal history of nicotine dependence; X50.1XXA Overexertion from prolonged static or awkward postures, initial encounter; Y93.89 Activity, other specified; Y92.89 Other specified places as the place of occurrence of the external cause; Y99.8 Other external cause status; Z79.899 Other long term (current) drug therapy; Y90.6 Blood alcohol level of 120-199 mg/100 ml
CPT/HCPCS: 36415; 71045; 73590; 73600; 73610; 73630; 76000; 80048; 80307; 80320; 81001; 85025; 85610; 85730; 86850; 86900; 86901; 96361; 96374; 96375; 97163; 99152; G0378; J2250; J2405

== ENCOUNTER 2025-04-30 14:20 | Inpatient (IN) | payer MEDICAID ==
[~2025-04-30] VITALS: Ht 165.1 cm; Wt 72.5 kg
[~2025-04-30 14:20] MED LIST changes: +PERCOT PO
[2025-04-30] MEDS: SODIUM CHLORIDE 0.9% 1,000 ML IV ONE ×2 (14:45→19:32)
--- NOTE | 2025-04-30 14:56 | ED.PDOC ---
GI ASSESSMENT HPI Comments A 54 YEAR OLD FEMALE PRESENTS TO THE ED WITH COMPLAINT OF DIARRHEA AND PELVIC PAIN. PATIENT STATES HE HAS BEEN EXPERIENCING DIARRHEA AND PELVIC PAIN OFF AND ON FOR THE PAST 1.5 MONTHS. PATIENT NOTES THAT HER DIARRHEA COMES AND GOES AND THAT SHE ALSO HAS NAUSEA WITH HER PAIN. PATIENT STATES SHE IS UNABLE TO TOLERATE HER SYMPTOMS. PATIENT DENIES FEVER, CHILLS, SHORTNESS OF BREATH, CHEST PAIN, VOMITING, HEADACHE, OR OTHER COMPLAINTS. NO OTHER SYMPTOMS OR MODIFYING FACTORS AT THIS TIME. PATIENT IS ALERT, ORIENTED X 4, AND HAS STEADY GAIT. Chief Complaint: Pelvic Pain Time Seen by MD: 14:24 Primary Care Provider: HERMILO Reviewed Notes: Nurses Notes, Medications, Allergies Allergies: Coded Allergies: NO KNOWN ALLERGIES (Unverified , 04/28/23) Home Meds Active Scripts Oxycodone W/ Acetaminophen (Percocet 5/325MG) 1 Tab Tb, 1 TAB PO QID for 7 Days, #28 TAB Prov:MEENAKSHI RG [employer] 01/08/25 Methylprednisolone (Medrol Dosepak) 4 Mg Peyman, 4 MG PO UD, #21 TAB UAD Prov:BRONWYN FONG 08/29/24 Cephalexin Monohydrate (Cephalexin) 500 Mg Cap, 1 CAP PO TID, #30 CAP Prov:BRONWYN FONG 08/29/24 Clobetasol Propionate (Clobetasol Propionate) 0.05 % Oin, 1 APPLIC TOP BID, #30 GRAMS 1 Refill Prov:BRONWYN FONG 08/29/24 Cephalexin Monohydrate (Cephalexin) 500 Mg Cap, 1 CAP PO TID, #24 CAP Prov:BRONWYN FOGN 04/28/23 Information Source: Patient Mode of Arrival: Ambulatory Timing: Months Duration: Intermittent Prehospital treatment: None Quality: Aching, Cramping, Colicky Vomitus: Watery Stool: Loose, Watery Severity: Moderate Recent: None Recent Hx of: None Pain Location: RLQ, LLQ, Suprapubic Modifying Factors: Nothing Associated sign and symptoms: Nausea, Diarrhea, Abdominal Pain Past Medical History PAST MEDICAL HISTORY: Denies Surgical History: Denies all surgeries BE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: No Pertinent BE[employer] 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 Family History Family History: Reviewed,noncontributory to illness Social History Smoker: Non-Smoker Alcohol: Denies ETOH Use Drugs: Denies Drug Use Lives In: Home Constitutional: denies: chills, diaphoresis, fatigue, fever, malaise, sweats, weakness, others EENTM: denies: blurred vision, double vision, ear bleeding, ear discharge, ear drainage, ear pain, ear ringing, eye pain, eye redness, hearing loss, mouth pain, mouth swelling, nasal discharge, nose bleeding, nose congestion, nose pain, photophobia, tearing, throat pain, throat swelling, voice changes, others Respiratory: denies: cough, hemoptysis, orthopnea, SOB at rest, shortness of breath, SOB with excertion, stridor, wheezing, others Cardiovascular: denies: chest pain, dizzy spells, diaphoresis, Dyspnea on exertion, edema, irregular heart beat, left arm pain, lightheadedness, palpitations, PND, syncope, others Gastrointestinal: reports: abdominal pain, diarrhea, nausea; denies: abdomen distended, blood streaked bowels, constipated, dysphagia, difficulty swallowing, hematemesis, melena, poor appetite, poor fluid intake, rectal bleeding, rectal pain, vomiting, others Genitourinary: reports: pain (PELVIC PAIN); denies: abnormal vagina bleeding, burning, dyspareunia, dysuria, flank pain, frequency, hematuria, incontinence, , vagina discharge, urgency, others Neurological: denies: dizziness, fainting, headache, left sided numbness, left sided weakness, numbness, paresthesia, pre-existing deficit, right sided numbness, right sided weakness, seizure, speech problems, tingling, tremors, weakness, others Musculoskeletal: denies: back pain, gout, joint pain, joint swelling, muscle pain, muscle stiffness, neck pain, others Integumetry: denies: bruises, change in color, change in hair/nails, dryness, laceration, lesions, lumps, rash, wounds, others Allergic/Immunocompromised: denies: Difficulty Healing, Frequent Infections, Hives, Itching, others Hematologic/Lymphatic: denies: anemia, blood clots, easy bleeding, easy bruising, swollen glands, others Endocrine: denies: excessive hunger, excessive sweating, excessive thirst, excessive urination, flushing, intolerance to cold, intolerance to heat, unexplained weight gain, unexplained weight loss, others Psychiatric: denies: anxiety, bipolar disorder, depression, hopeless, panic disorder, schizophrenia, sleepless, suicidal, others All Other Systems: Reviewed and Negative Physical Exam General Appearance: Mild Distress, Normal HEENT: Normal ENT Inspection, PERRL/EOMI, Pharynx Normal, TMs Normal Neck: Full Range of Motion, Non-Tender, Normal, Normal Inspection Respiratory: Chest Non-Tender, Lungs Clear, No Accessory Muscle Use, No Respiratory Distress, Normal Breath Sounds Cardiovascular: No Edema, No JVD, No Murmur, No Gallop, Normal Peripheral Pulses, Regular Rate/Rhythm Breast Exam: Deferred Gastrointestinal: LLQ, No Organomegaly, No Pulsatile Mass, Normal Bowel Sounds, RLQ, Soft, Suprapubic, Tenderness (LOWER ABD AND PELVIC, NO GUARDING AND REBOUND TENDERNESS. ) Genitalia: Deferred Pelvic: Normal External Exam, Tender Uterus, Other (TENDERNESS ON PELVIC, NO GUARDING AND REBOUND TENDERNESS. ) Rectal: Deferred Extremities: No calf tenderness, Normal capillary refill, Normal inspection, Normal range of motion, Non-tender, No pedal edema Musculoskeletal : Apperance: Normal Neurologic: Alert, hhas II-XII nml as Tested, No Motor Deficits, Normal Affect, Normal Mood, No Sensory Deficits Cerebellar Function: Normal Reflexes: Normal Skin: Dry, Normal Color, Warm Peripheral Pulses: 2+ carotid (R), 2+ carotid (L) Lymphatic: No Adenopathy Was a procedure done? Was a procedure done?: No GI differential Dx Differential Diagnosis: Appendicitis, Gastroenteritis, Inflammatory BD, UTI, Dehydration, Electrolyte Imbalance, Food Poisoning, Viral X-Ray, Labs, Meds, VS Vital Signs Date Time Temp Pulse Resp B/P (MAP) Pulse Ox O2 Delivery O2 Flow Rate FiO2 04/30/25 15:34 98.0 108 17 127/81 (96) 97 98.0 04/30/25 14:24 97.9 110 12 137/80 99 97.9 Lab Test 04/30/25 15:27 04/30/25 14:42 Range/Units Urine Color Yellow Yellow Urine Clarity Clear Clear Urine pH 5.5 5.0-9.0 Urine Specific Sigel 1.019 1.001-1.035 Urine Protein Negative Negative Urine Ketones Trace Negative Urine Blood Negative Negative /uL Urine Nitrite Negative Negative Urine Bilirubin Negative Negative Urine Urobilinogen Normal Negative mg/dL Urine Leukocyte Esterase Negative Negative /uL Urine RBC 1 0 - 4 /hpf Urine Microscopic WBC 2 0-5 /HPF Urine Squamous Epithelial Cells Few <5 /hpf Urine Bacteria None seen None Seen /hpf Urine Mucus Few None Seen Urine Glucose Normal Normal mg/dL White Blood Count 15.1 H 4.4-10.8 10^3/uL Red Blood Count 5.24 H 4.0-5.20 10^6/uL Hemoglobin 15.7 12.2-16.2 g/dL Hematocrit 45.3 36.0-46.0 % Mean Corpuscular Volume 86.6 80.0-100.0 fL Mean Corpuscular Hemoglobin 29.9 28.0-32.0 pg Mean Corpuscular Hemoglobin Concent 34.6 32.0-36.0 g/dL Red Cell Distribution Width 14.2 11.8-14.3 % Platelet Count 388 140-450 10^3/uL Mean Platelet Volume 8.6 6.9-10.8 fL Neutrophils (%) (Auto) 65.5 37.0-80.0 % Lymphocytes (%) (Auto) 21.2 10.0-50.0 % Monocytes (%) (Auto) 10.1 0.0-12.0 % Eosinophils (%) (Auto) 2.2 0.0-7.0 % Basophils (%) (Auto) 1.0 0.0-2.0 % Neutrophils # (Auto) 9.9 H 1.6-8.6 10 ^3/uL Lymphocytes # (Auto) 3.2 0.4-5.4 10 ^3/uL Monocytes # (Auto) 1.5 H 0-1.3 10 ^3/uL Eosinophils # (Auto) 0.3 0-0.8 10 ^3/uL Basophils # (Auto) 0.1 0-0.2 10 ^3/uL Nucleated Red Blood Cells 0.0 % Sodium Level 142 136-145 mmol/L Potassium Level 4.5 3.5-5.1 mmol/L Chloride Level 108 H 98-107 mmol/L Carbon Dioxide Level 26 20-31 mmol/L Anion Gap 8 5-15 Blood Urea Nitrogen 17 9-23 mg/dL Creatinine 0.88 0.550-1.02 mg/dL Glomerular Filtration Rate Calc 79 >90 mL/min BUN/Creatinine Ratio 19.3 10.0-20.0 Serum Glucose 85 74-106 mg/dL Calcium Level 9.8 8.7-10.4 mg/dL Current Medications Medications (Trade) Dose Ordered Sig/Ciro Route Start Time Stop Time Status Last Admin Sodium Chloride 1,000 ml @ 1,000 mls/hr Q1H ONCE IV 04/30/25 14:45 04/30/25 15:44 DC 04/30/25 14:45 Metronidazole 100 ml @ 100 mls/hr ONCE ONCE IV 04/30/25 16:45 04/30/25 17:44 04/30/25 17:11 Levofloxacin/ Dextrose 100 ml @ 100 mls/hr ONCE ONCE IV 04/30/25 16:45 04/30/25 17:44 04/30/25 17:11 Indication: LOWER ABD PAIN WITH DIARRHEA X 1.5 MONTHS Technique: CT axial images of the abdomen and pelvis are obtained without contrast. Coronal and sagittal reformats were obtained. Radiation Dose Information: CTDI volume is 9 mGy. Dose-length product is 430 mGy*cm Comparison: None FINDINGS: There is limited interpretation of the abdomen and pelvis without administration of intravenous contrast. Lung bases demonstrate 4 mm right lower lobe solid nodule. Adrenal glands demonstrate 2.5 cm left adrenal adenoma. Spleen, pancreas and liver unremarkable in shape. No CT evidence for cholelithiasis. No hydronephrosis, nephrolithiasis. Gastric distention. Small bowel loops normal in caliber. Moderate volume stool in the colon. There are no secondary signs for appendicitis. Mild bowel wall thickening of the descending and rectosigmoid colon. Abdominal aortic atherosclerotic disease. Bladder partially distended. No free pelvic fluid. No inguinal lymphadenopathy. [id number] bilateral sacroiliac degenerative joint disease. [id number] thoracolumbar degenerative disc disease. IMPRESSION: Limited evaluation without contrast. Mild bowel wall thickening of the descending and rectosigmoid colon. Correlate for colitis, inflammatory bowel disease. No hydronephrosis, nephrolithiasis. 4 mm right lower lobe solid nodule. Recommend follow-up per fleischner society criteria. Atherosclerotic disease. Other findings as described. ATED BY: MAURIZIO ROBERTS MD DICTATED DATE/TIME: 04/30/25 1626 SIGNED BY: MAURIZIO ROBERTS MD SIGNED DATE/TIME: 11/06/25 1626 CC: Technique: Real-time ultrasound images through the pelvis using a transabdominal transducer. For better evaluation of the ovaries and endometrial stripe, an endovaginal transducer was used. Indication: PELVIC PAIN X 1.5 MONTHS Comparison: None Findings: The uterus measures 5.9 cm. The endometrial stripe measures 3 mm. There are no focal masses. There is no abnormal flow in the endometrium. Cervical nabothian cysts measuring 2.5 cm. Right ovary measures 2.5 x 1.9 x 3.6 cm. Normal flow on color doppler images. No focal masses are identified. Left ovary nonvisualized. There is no significant free fluid in the pelvis. Impression: Left ovary nonvisualized. Otherwise unremarkable pelvic ultrasound. ATED BY: MAURIZIO ROBERTS MD DICTATED DATE/TIME: 04/30/25 1550 SIGNED BY: MAURIZIO ROBERTS MD SIGNED DATE/TIME: 04/30/25 1550 CC: X-Ray, Labs, Meds, VS Comment EXTERNAL MEDICAL RECORDS REVIEWED: [NONE] INDEPENDENT HISTORIANS: [NONE] SOCIAL DETERMINANTS OF HEALTH: [NONE] LABS ORDERED: CBC, BMP, UA, C DIFF TOXIN REVIEWED AND INTERPRETED RESULTS: WBC 15.1 IMAGING ORDERED: US PELVIS, CT ABD/PEL TREATMENTS ORDERED: NS 1L IV, LEVAQUIN 500 MG IV, FLAGYL 500 MG IV, TORADOL 30MG IV PROCEDURES PERFORMED: NONE CRITICAL CARE TIME: NONE I HAVE DISCUSSED THE PATIENT WITH THE ATTENDING PHYSICIAN DR. POWELL AND HE AGREES WITH THE PATIENT'S PLAN OF CARE. UPON MY PHYSICAL EXAMINATION, THE PATIENT HAD GUARDING TO HER LOWER ABDOMEN, BUT NO REBOUND TENDERNESS NOTED. A CT SCAN OF THE PATIENT'S ABDOMEN AND PELVIS WAS DONE WHICH REVEALED FINDINGS SUGGESTING POSSIBLE COLITIS/INFLAMMATORY BOWEL DISEASE. DUE TO THE PATIENT'S PERSISTENT DIARRHEA AND PERSISTENT ABDOMINAL PAIN DESPITE TREATMENT, I HAVE DETERMINED THE PATIENT NEEDS TO BE ADMITTED FOR FURTHER TREATMENT AND EVALUATION. THE ON-CALL HOSPITALIST WILL BE CONTACTED FOR ADMISSION OF THIS PATIENT. Images Reviewed?: Images reviewed and evaluated by me Time of 1ST Reevaluation: 17:00 Reevaluation 1ST: Unchanged Patient Education/Counseling: Diagnosis, Treatment Family Education/Counseling: Diagnosis, Treatment SEPSIS Sepsis Screen Date sepsis recognized/suspect: Apr 30, 2025 Time Sepsis recognized/suspect: 1424 Recent Procedure: No On Antibiotic Therapy: No Respiratory Rate >20: No Heart Rate >90: Yes Temp<36 C (96.8 F) or >38.3 C: No SBP <90 or MAP <65 mmHG: No New Acute Mental Status Change: No Is the patient on CPAP, BIPAP,: No Physician Orders Pelvic (04/30/25 14:38) Heplock Iv (04/30/25 ) Clostridium Difficile Toxin (04/30/25 14:38) Ct Ab Pel Wo Con-No Oral Or Iv (04/30/25 15:32) Metronidazole 500mg/100ml (Flagyl 500mg/ (04/30/25 16:45) Levofloxacin 500mg (Levaquin 500mg/ 100m (04/30/25 16:45) Sodium Chloride 0.9% (04/30/25 17:15) Vital Signs Date Time Temp Pulse Resp B/P (MAP) Pulse Ox O2 Delivery O2 Flow Rate FiO2 04/30/25 15:34 98.0 108 17 127/81 (96) 97 98.0 04/30/25 14:24 97.9 110 12 137/80 99 97.9 Laboratory Tests Test 04/30/25 14:42 White Blood Count 15.1 10^3/uL (4.4-10.8) H Medications Medications Dose Ordered Sig/Ciro Route Start Time Stop Time Status Last Admin Dose Admin Levofloxacin/ Dextrose 100 ml @ 100 mls/hr ONCE ONCE IV 04/30/25 16:45 04/30/25 17:44 04/30/25 17:11 Metronidazole 100 ml @ 100 mls/hr ONCE ONCE IV 04/30/25 16:45 04/30/25 17:44 04/30/25 17:11 Sodium Chloride 1,000 ml @ 1,000 mls/hr Q1H ONCE IV 04/30/25 14:45 04/30/25 15:44 DC 04/30/25 14:45 Departure 1 Departure Time of Disposition: 17:24 Impression: Primary Impression: Inflammatory bowel disease Additional Impression: Colitis Disposition: 09 ADMITTED INPATIENT Condition: Serious Critical Care Note Critical Care Time?: No Stability Stability form required: Yes Unstable for transfer: Requires medication, ED Physician Assesment, Possible rapid decline I personally scribed for BRONWYN FONG ([email or web address]) on 04/30/25 at 14:56. Electronically submitted by Joesph Zheng ([email or web address]). I personally scribed for BRONWYN FONG ([email or web address]) on 04/30/25 at 17:01. Electronically submitted by Joesph Zheng ([email or web address]). I personally scribed for BRONWYN FONG ([email or web address]) on 04/30/25 at 17:02. Electronically submitted by Joesph Zheng ([email or web address]). BRONWYN FONG Apr 30, 2025 14:56
[2025-04-30 15:10] LABS: Hematocrit 45.3 % (36.0-46.0); Hemoglobin 15.7 g/dL (12.2-16.2); Mean Corpuscular Hemoglobin 29.9 pg (28.0-32.0); Mean Corpuscular Volume 86.6 fL (80.0-100.0); Nucleated Red Blood Cells % 0.0 %
[2025-04-30 15:21] LABS: Anion Gap 8 (5-15); Carbon Dioxide 26 mmol/L (20-31); Potassium 4.5 mmol/L (3.5-5.1); Sodium 142 mmol/L (136-145)
[2025-04-30 15:23] LABS: Calcium 9.8 mg/dL (8.7-10.4)
[2025-04-30 15:27] LABS: Glucose 85 mg/dL (74-106)
[2025-04-30 15:28] LABS: BUN/Creatinine Ratio 19.3 (10.0-20.0); Blood Urea Nitrogen 17 mg/dL (9-23); Chloride 108 mmol/L (98-107)
--- NOTE | 2025-04-30 15:48 | DVH ---
Technique: Real-time ultrasound images through the pelvis using a transabdominal transducer. For better evaluation of the ovaries and endometrial stripe, an endovaginal transducer was used. Indication: PELVIC PAIN X 1.5 MONTHS Comparison: None Findings: The uterus measures 5.9 cm. The endometrial stripe measures 3 mm. There are no focal masses. There is no abnormal flow in the endometrium. Cervical nabothian cysts measuring 2.5 cm. Right ovary measures 2.5 x 1.9 x 3.6 cm. Normal flow on color doppler images. No focal masses are identified. Left ovary nonvisualized. There is no significant free fluid in the pelvis. Impression: Left ovary nonvisualized. Otherwise unremarkable pelvic ultrasound.
--- NOTE | 2025-04-30 16:24 | DVH ---
Indication: LOWER ABD PAIN WITH DIARRHEA X 1.5 MONTHS Technique: CT axial images of the abdomen and pelvis are obtained without contrast. Coronal and sagittal reformats were obtained. Radiation Dose Information: CTDI volume is 9 mGy. Dose-length product is 430 mGy*cm Comparison: None FINDINGS: There is limited interpretation of the abdomen and pelvis without administration of intravenous contrast. Lung bases demonstrate 4 mm right lower lobe solid nodule. Adrenal glands demonstrate 2.5 cm left adrenal adenoma. Spleen, pancreas and liver unremarkable in shape. No CT evidence for cholelithiasis. No hydronephrosis, nephrolithiasis. Gastric distention. Small bowel loops normal in caliber. Moderate volume stool in the colon. There are no secondary signs for appendicitis. Mild bowel wall thickening of the descending and rectosigmoid colon. Abdominal aortic atherosclerotic disease. Bladder partially distended. No free pelvic fluid. No inguinal lymphadenopathy. [id number] bilateral sacroiliac degenerative joint disease. [id number] thoracolumbar degenerative disc disease. IMPRESSION: Limited evaluation without contrast. Mild bowel wall thickening of the descending and rectosigmoid colon. Correlate for colitis, inflammatory bowel disease. No hydronephrosis, nephrolithiasis. 4 mm right lower lobe solid nodule. Recommend follow-up per fleischner society criteria. Atherosclerotic disease. Other findings as described.
[2025-04-30 16:30] LABS: Urine Protein, UAD Negative (Negative)
[2025-04-30] MEDS ORDERED: LOPERAMIDE HCL 2 MG CAP/TAB PO PRN (18:15)
--- NOTE | 2025-04-30 18:20 | DVHHP2 ---
History of Present Illness Reason for Visit: Abdominal pain History of Present Illness 54-year-old female presents for evaluation of abdominal pain. Patient reports a one month history of lower abdominal pain cramping/sharp in nature with associated watery diarrhea. She also reports episodes of nausea. Over the past day she has also been having intermittent fevers. Currently reports the pain at 5/10 intensity. Past Medical History Denies Past Surgical History Denies Family History Noncontributory Smoke: No ALCOHOL: none Drugs: None Lives: with Family Review of Systems Review of Systems Review of systems are currently negative otherwise addressed in HPI. Allergies: Coded Allergies: NO KNOWN ALLERGIES (Unverified , 04/28/23) Medications Current Medications Medications Dose Ordered Sig/Ciro Route Start Time Stop Time Status Last Admin Dose Admin Ceftriaxone Sodium 50 ml @ 100 mls/hr DAILY@09 IV 05/01/25 09:00 UNV Metronidazole 100 ml @ 100 mls/hr Q8HR IV 04/30/25 22:00 UNV Loperamide HCl 2 mg PRN PRN PO 04/30/25 18:15 UNV Acetaminophen/ Hydrocodone Bitart 1 tab Q4HP PRN PO 04/30/25 18:15 UNV Temazepam 15 mg QHSP PRN PO 04/30/25 18:15 UNV Ondansetron HCl 4 mg Q4HP PRN IV 04/30/25 18:15 UNV Acetaminophen 650 mg Q6HP PRN PO 04/30/25 18:15 UNV Morphine Sulfate 2 mg Q6HPRN PRN IV 04/30/25 18:15 UNV Pantoprazole Sodium 40 mg DAILY IV 05/01/25 10:00 UNV Exam Vital Signs Vital Signs Date Time Temp Pulse Resp B/P (MAP) Pulse Ox O2 Delivery O2 Flow Rate FiO2 04/30/25 15:34 98.0 108 17 127/81 (96) 97 98.0 Exam Gen: 54-year-old female in mild distress. Skin: Warm, dry, normal color and texture, no rash. HEENT: Normocephalic atraumatic, mucous membranes moist and pink. Neck: Cervical and supraclavicular nodes normal without enlargement, trachea is midline, thyroid gland is normal without masses. Pulmonary: Clear to auscultation and percussion bilaterally. Cardiac: Regular rate and rhythm. No murmur Abdomen: Soft, nontender, nondistended, bowel sounds present all 4 quadrants, no guarding, no rigidity, no organomegaly. Extremities: No cyanosis, clubbing, no edema Neuro: Cranial nerves II through XII grossly intact, normal affect and speech, no focal motor deficits. Labs/Xrays ORDERING PHYSICIAN: BRONWYN FONG PROCEDURE(s): PELUS - PELVIC REASON: PELVIC PAIN X 1.5 MONTHS ORDER NUMBER(s): [id number], ACCESSION NUMBER(s): [id number] Technique: Real-time ultrasound images through the pelvis using a transabdominal transducer. For better evaluation of the ovaries and endometrial stripe, an endovaginal transducer was used. Indication: PELVIC PAIN X 1.5 MONTHS Comparison: None Findings: The uterus measures 5.9 cm. The endometrial stripe measures 3 mm. There are no focal masses. There is no abnormal flow in the endometrium. Cervical nabothian cysts measuring 2.5 cm. Right ovary measures 2.5 x 1.9 x 3.6 cm. Normal flow on color doppler images. No focal masses are identified. Left ovary nonvisualized. There is no significant free fluid in the pelvis. Impression: Left ovary nonvisualized. Otherwise unremarkable pelvic ultrasound. RING PHYSICIAN: BRONWYN FONG PROCEDURE(s): ABPL - CT AB PEL WO CON-NO ORAL OR IV REASON: LOWER ABD PAIN WITH DIARRHEA X 1.5 MONTHS ORDER NUMBER(s): [id number], ACCESSION NUMBER(s): [id number] Indication: LOWER ABD PAIN WITH DIARRHEA X 1.5 MONTHS Technique: CT axial images of the abdomen and pelvis are obtained without contrast. Coronal and sagittal reformats were obtained. Radiation Dose Information: CTDI volume is 9 mGy. Dose-length product is 430 mGy*cm Comparison: None FINDINGS: There is limited interpretation of the abdomen and pelvis without administration of intravenous contrast. Lung bases demonstrate 4 mm right lower lobe solid nodule. Adrenal glands demonstrate 2.5 cm left adrenal adenoma. Spleen, pancreas and liver unremarkable in shape. No CT evidence for cholelithiasis. No hydronephrosis, nephrolithiasis. Gastric distention. Small bowel loops normal in caliber. Moderate volume stool in the colon. There are no secondary signs for appendicitis. Mild bowel wall thickening of the descending and rectosigmoid colon. Abdominal aortic atherosclerotic disease. Bladder partially distended. No free pelvic fluid. No inguinal lymphadenopathy. [id number] bilateral sacroiliac degenerative joint disease. [id number] thoracolumbar degenerative disc disease. IMPRESSION: Limited evaluation without contrast. Mild bowel wall thickening of the descending and rectosigmoid colon. Correlate for colitis, inflammatory bowel disease. No hydronephrosis, nephrolithiasis. 4 mm right lower lobe solid nodule. Recommend follow-up per fleischner society criteria. Atherosclerotic disease. Other findings as described. Labs Test 04/30/25 15:27 04/30/25 14:42 Range/Units Urine Color Yellow Yellow Urine Clarity Clear Clear Urine pH 5.5 5.0-9.0 Urine Specific [place] 1.019 1.001-1.035 Urine Protein Negative Negative Urine Ketones Trace Negative Urine Blood Negative Negative /uL Urine Nitrite Negative Negative Urine Bilirubin Negative Negative Urine Urobilinogen Normal Negative mg/dL Urine Leukocyte Esterase Negative Negative /uL Urine RBC 1 0 - 4 /hpf Urine Microscopic WBC 2 0-5 /HPF Urine Squamous Epithelial Cells Few <5 /hpf Urine Bacteria None seen None Seen /hpf Urine Mucus Few None Seen Urine Glucose Normal Normal mg/dL White Blood Count 15.1 H 4.4-10.8 10^3/uL Red Blood Count 5.24 H 4.0-5.20 10^6/uL Hemoglobin 15.7 12.2-16.2 g/dL Hematocrit 45.3 36.0-46.0 % Mean Corpuscular Volume 86.6 80.0-100.0 fL Mean Corpuscular Hemoglobin 29.9 28.0-32.0 pg Mean Corpuscular Hemoglobin Concent 34.6 32.0-36.0 g/dL Red Cell Distribution Width 14.2 11.8-14.3 % Platelet Count 388 140-450 10^3/uL Mean Platelet Volume 8.6 6.9-10.8 fL Neutrophils (%) (Auto) 65.5 37.0-80.0 % Lymphocytes (%) (Auto) 21.2 10.0-50.0 % Monocytes (%) (Auto) 10.1 0.0-12.0 % Eosinophils (%) (Auto) 2.2 0.0-7.0 % Basophils (%) (Auto) 1.0 0.0-2.0 % Neutrophils # (Auto) 9.9 H 1.6-8.6 10 ^3/uL Lymphocytes # (Auto) 3.2 0.4-5.4 10 ^3/uL Monocytes # (Auto) 1.5 H 0-1.3 10 ^3/uL Eosinophils # (Auto) 0.3 0-0.8 10 ^3/uL Basophils # (Auto) 0.1 0-0.2 10 ^3/uL Nucleated Red Blood Cells 0.0 % Sodium Level 142 136-145 mmol/L Potassium Level 4.5 3.5-5.1 mmol/L Chloride Level 108 H 98-107 mmol/L Carbon Dioxide Level 26 20-31 mmol/L Anion Gap 8 5-15 Blood Urea Nitrogen 17 9-23 mg/dL Creatinine 0.88 0.550-1.02 mg/dL Glomerular Filtration Rate Calc 79 >90 mL/min BUN/Creatinine Ratio 19.3 10.0-20.0 Serum Glucose 85 74-106 mg/dL Calcium Level 9.8 8.7-10.4 mg/dL SEPSIS Sepsis Screen Date sepsis recognized/suspect: Apr 30, 2025 Time Sepsis recognized/suspect: 1423 Recent Procedure: No On Antibiotic Therapy: No Respiratory Rate >20: No Heart Rate >90: Yes Temp<36 C (96.8 F) or >38.3 C: No SBP <90 or MAP <65 mmHG: No New Acute Mental Status Change: No Is the patient on CPAP, BIPAP,: No Physician Orders Pelvic (04/30/25 14:38) Heplock Iv (04/30/25 ) Clostridium Difficile Toxin (04/30/25 14:38) Ct Ab Pel Wo Con-No Oral Or Iv (04/30/25 15:32) Sodium Chloride 0.9% (04/30/25 17:15) Stool Bacterial Culture (04/30/25 18:08) * [facility] [employer] (04/30/25 18:08) Ceftriaxone 1gm/50ml (Rocephin) (05/01/25 09:00) Metronidazole 500mg/100ml (Flagyl 500mg/ (04/30/25 22:00) Loperamide Capsule (Imodium Capsule) (04/30/25 18:15) Lipase (04/30/25 18:08) Admit (04/30/25 18:08) Hydrocodone-Acet 5/325mg Tab ([place] /32 (04/30/25 18:15) Temazepam (Restoril) (04/30/25 18:15) Ondansetron Hcl (Zofran) (04/30/25 18:15) Complete Blood Count (05/01/25 04:00) Comprehensive Metabolic Panel (05/01/25 04:00) Condition: Stable (04/30/25 18:08) Acetaminophen Tablet (Tylenol Tablet) (04/30/25 18:15) Clear Liq Diet (04/30/25 Dinner) Bedrest With Bathroom Privileg (04/30/25 18:08) Morphine Sulfate Injection (04/30/25 18:15) Pantoprazole (Protonix) (04/30/25 18:15) Pantoprazole (Protonix) (05/01/25 10:00) Vital Signs Date Time Temp Pulse Resp B/P (MAP) Pulse Ox O2 Delivery O2 Flow Rate FiO2 04/30/25 15:34 98.0 108 17 127/81 (96) 97 98.0 04/30/25 14:24 97.9 110 12 137/80 99 97.9 Laboratory Tests Test 04/30/25 14:42 White Blood Count 15.1 10^3/uL (4.4-10.8) H Medications Medications Dose Ordered Sig/Ciro Route Start Time Stop Time Status Last Admin Dose Admin Levofloxacin/ Dextrose 100 ml @ 100 mls/hr ONCE ONCE IV 04/30/25 16:45 04/30/25 17:44 DC 04/30/25 17:11 100 MLS/HR Metronidazole 100 ml @ 100 mls/hr ONCE ONCE IV 04/30/25 16:45 04/30/25 17:44 DC 04/30/25 17:11 100 MLS/HR Sodium Chloride 1,000 ml @ 1,000 mls/hr Q1H ONCE IV 04/30/25 14:45 04/30/25 15:44 DC 04/30/25 14:45 1,000 MLS/HR Assessment/Plan Assessment/Plan Assessment Intractable abdominal pain Questionable colitis Plan Admit the patient to [facility] surge to the hospitalist GI consult Rocephin/Flagyl Pain management Maintenance IV fluids Continue treatment per orders. Plan discussed with: Patient My Orders Orders - JEFF CAMEJO Procedure Category Date Status Time Stool Bacterial MELISSA 04/30/25 Logged Culture 18:08 * [employer] CONS 04/30/25 Transmitted 18:08 Ceftriaxone 1gm/50ml PHA 05/01/25 Logged (Rocephin) 09:00 Metronidazole PHA 04/30/25 Logged 500mg/100ml (Flagyl 22:00 Loperamide Capsule PHA 04/30/25 Logged (Imodium Capsule) 18:15 Lipase LAB 04/30/25 In Process 18:08 Admit ADMIT 04/30/25 Transmitted 18:08 Hydrocodone-Acet PHA 04/30/25 Logged 5/325mg Tab ([place] 18:15 Temazepam (Restoril) PHA 04/30/25 Logged 18:15 Ondansetron Hcl PHA 04/30/25 Logged (Zofran) 18:15 Complete Blood Count LAB 05/01/25 Verified 04:00 Comprehensive LAB 05/01/25 Verified Metabolic Panel 04:00 Condition: Stable NOELLE 04/30/25 In Process 18:08 Acetaminophen Tablet PHA 04/30/25 Logged (Tylenol Tablet) 18:15 Clear Liq Diet DIET 04/30/25 Transmitted Dinner Bedrest With Bathroom NOELLE 04/30/25 In Process Privileg 18:08 Morphine Sulfate PHA 04/30/25 Logged Injection 18:15 Pantoprazole PHA 04/30/25 Logged (Protonix) 18:15 Pantoprazole PHA 05/01/25 Logged (Protonix) 10:00 Date of Service: Apr 30, 2025 Billing Provider: JEFF CAMEJO Common Visit Codes: [id number] INP/OBS CARE (HIGH) JEFF CAMEJO Apr 30, 2025 18:20
[2025-04-30 18:48] VITALS: PULSE 93; RESP 18; O2SAT 97
[2025-04-30] MEDS: KETOROLAC TROMETH 30 MG/ML 1ML VIAL IV ONE (19:31)
[2025-04-30] MEDS: PANTOPRAZOLE 40 MG/10 ML VIAL INJ IV ONE (19:32)
[2025-04-30 20:45] VITALS: BP 113/77; PULSE 79; RESP 18; TEMP 98.9; O2SAT 100
[2025-04-30 21:02] VITALS: BP 113/77; PULSE 79; RESP 18; TEMP 98.9; O2SAT 100
[2025-04-30] MEDS: TEMAZEPAM 15 MG CAP PO PRN (21:57)
[2025-04-30] MEDS: MORPHINE SULFATE INJ 2 MG/ml SYRG IV PRN (22:07)
[2025-05-01] VITALS (9 sets, daily range): BP systolic 104–142; BP diastolic 68–87; PULSE 65–85; RESP 16–19; TEMP 97.2–99.1; O2SAT 96–99
[2025-05-01] MEDS: HYDROcodone-ACET 5/325MG TAB PO PRN (05:57)
[2025-05-01 07:21] LABS: Hematocrit 40.9 % (36.0-46.0); Hemoglobin 14.0 g/dL (12.2-16.2); Mean Corpuscular Hemoglobin 29.8 pg (28.0-32.0); Mean Corpuscular Volume 86.9 fL (80.0-100.0); Nucleated Red Blood Cells % 0.1 %
[2025-05-01 07:29] LABS: Alanine Aminotransferase < 9 U/L (7-40); Albumin 4.1 g/dL (3.2-4.8); Alkaline Phosphatase 75 U/L (46-116); Anion Gap 7 (5-15); BUN/Creatinine Ratio 15.5 (10.0-20.0); Bilirubin, Total 0.4 mg/dL (0.2-1.0); Blood Urea Nitrogen 9 mg/dL (9-23); Calcium 9.0 mg/dL (8.7-10.4); Carbon Dioxide 23 mmol/L (20-31); Chloride 114 mmol/L (98-107); Glucose 84 mg/dL (74-106); Potassium 3.9 mmol/L (3.5-5.1); Sodium 144 mmol/L (136-145); Total Protein 6.6 g/dL (5.7-8.2)
[2025-05-01] MEDS: PANTOPRAZOLE 40 MG/10 ML VIAL INJ IV SCH (08:57)
[2025-05-01 11:23] LABS: INR 1.04 (0.9-1.15); Prothrombin Time 11.0 sec (9.3-11.8)
[2025-05-01] MEDS: SODIUM CHLORIDE 0.9% 1,000 ML IV ONE (12:45)
--- NOTE | 2025-05-01 13:14 | DVHCONRES ---
Date Seen: May 01, 2025 Resident Creating Document: JHAJJ,SARPUNEET RESIDENT Referring Physician Ifeanyi GALLEGOS Reason for Consultation Colitis History of Present Illness Patient is a 54-year-old female with no significant past medical history presented to the ED with a chief complaint of lower abdominal pain and intractable diarrhea for 1-1/2 months. Patient reported that initially she that her symptoms started about 2 months ago initially with constipation about 2 months ago and later on she started to have diarrhea with multiple episodes of bowel movements. She did take antibiotics for a week for a UTI and about a month ago because of abnormal Pap smear she had a cryotherapy after which she felt her symptoms of lower abdominal pain and diarrhea worsened. She also reports of occasional blood in stool for the last 7-8 months. Last colonoscopy was done in 2016 which was apparently normal and no polyps were found. Patient denies any history of inflammatory bowel disease and no family history as well IBD or colon cancer. Denies any weight loss, night sweats but does report of fevers sometimes with a sensation of feeling hot. CT abdomen pelvis without con trast was done which showed gastric distention, moderate volume stool, mild wall thickening of descending and rectosigmoid colon. Past Medical History None reported Past Surgical History Right ankle surgery Family History: Diabetes mellitus G8 MOTHER Hypertension G8 MOTHER Family History Noncontributory Social History Smokes cigarettes, denies any alcohol or any other drug use Allergies: Coded Allergies: NO KNOWN ALLERGIES (Unverified , 04/28/23) Home Meds Active Scripts Oxycodone W/ Acetaminophen (Percocet 5/325MG) 1 Tab Tb, 1 TAB PO QID for 7 Days, #28 TAB Prov:MEENAKSHI RG [employer]NER 01/08/25 Methylprednisolone (Medrol Dosepak) 4 Mg [place], 4 MG PO UD, #21 TAB UAD Prov:BRONWYN FONG 08/29/24 Cephalexin Monohydrate (Cephalexin) 500 Mg Cap, 1 CAP PO TID, #30 CAP Prov:BRONWYN FONG 08/29/24 Clobetasol Propionate (Clobetasol Propionate) 0.05 % Oin, 1 APPLIC TOP BID, #30 GRAMS 1 Refill Prov:BRONWYN FONG 08/29/24 Cephalexin Monohydrate (Cephalexin) 500 Mg Cap, 1 CAP PO TID, #24 CAP Prov:HETAL,KISHAJENN VASQUEZ 04/28/23 Current Medications Current Medications Medications (Trade) Dose Ordered Sig/Ciro Route PRN Reason Start Time Stop Time Status Last Admin Ceftriaxone Sodium 50 ml @ 100 mls/hr DAILY@09 IV 05/01/25 09:00 05/01/25 08:57 Metronidazole 100 ml @ 100 mls/hr Q8HR IV 04/30/25 22:00 05/01/25 05:11 Loperamide HCl (Imodium Capsule) 2 mg PRN PRN PO FOR DIARRHEA 04/30/25 18:15 05/01/25 10:59 DC Acetaminophen/ Hydrocodone Bitart ([place] 5/325MG Tab) 1 tab Q4HP PRN PO MODERATE PAIN (4-6 PAIN SCALE) 04/30/25 18:15 05/01/25 05:57 Temazepam (Restoril) 15 mg QHSP PRN PO FOR INSOMNIA 04/30/25 18:15 04/30/25 21:57 Ondansetron HCl (Zofran) 4 mg Q4HP PRN IV NAUSEA / VOMITING 04/30/25 18:15 Acetaminophen (Tylenol Tablet) 650 mg Q6HP PRN PO PAIN SCALE 1-3 OR TEMP>100.4 04/30/25 18:15 Morphine Sulfate 2 mg Q6HPRN PRN IV SEVERE PAIN (7-10 PAIN SCALE) 04/30/25 18:15 05/01/25 12:14 Pantoprazole Sodium (Protonix) 40 mg DAILY IV 05/01/25 10:00 05/01/25 08:57 Review of Systems Seen and examined with the bedside Reports of lower abdominal pain in the pelvic area Denies dysuria, hematuria, frequency, urgency Last bowel movement was reported yesterday and she did notice some blood on wiping Vital Signs Vital Signs Date Time Temp Pulse Resp B/P (MAP) Pulse Ox O2 Delivery O2 Flow Rate FiO2 05/01/25 12:14 69 16 142/87 05/01/25 09:53 97.7 97 97.7 05/01/25 08:00 Room Air* 0 21 Physical Exam Gen - no pallor, no scleral icterus Skin - Patients skin is warm and dry. Small scaly lesions around the neck and the upper back and in the scalp HEENT - normocephalic, atraumatic, dry mucous membranes. Neck - supple, no lymphadenopathy Pulmonary - B/L clear breath sounds cardiovascular - regular S1,S2 heard GI - soft abdomen with tenderness to palpation in the lower abdominal quadrants. Bowel sounds normoactive. Neurological - Patient is alert and oriented x4. No motor or sensory weakness Labs/Diagnostic Data Labs Test 05/01/25 10:30 05/01/25 04:43 04/30/25 15:27 04/30/25 14:42 Range/Units Prothrombin Time 11.0 9.3-11.8 sec Prothrombin Time INR 1.04 0.9-1.15 Lactic Acid Level 1.0 0.4-2.0 mmol/L Carcinoembryonic Antigen 2.73 <=5.0 ng/mL Thyroid Stimulating Hormone (TSH) 1.64 0.55-4.78 uIU/mL Beta HCG, Quantitative 3.2 1.5-4.2 mIU/mL HIV (1&2) Antibody Negative Negative White Blood Count 7.8 # 4.4-10.8 10^3/uL Red Blood Count 4.71 4.0-5.20 10^6/uL Hemoglobin 14.0 12.2-16.2 g/dL Hematocrit 40.9 36.0-46.0 % Mean Corpuscular Volume 86.9 80.0-100.0 fL Mean Corpuscular Hemoglobin 29.8 28.0-32.0 pg Mean Corpuscular Hemoglobin Concent 34.3 32.0-36.0 g/dL Red Cell Distribution Width 14.3 11.8-14.3 % Platelet Count 330 140-450 10^3/uL Mean Platelet Volume 8.7 6.9-10.8 fL Neutrophils (%) (Auto) 54.6 37.0-80.0 % Lymphocytes (%) (Auto) 28.7 10.0-50.0 % Monocytes (%) (Auto) 11.7 0.0-12.0 % Eosinophils (%) (Auto) 4.4 0.0-7.0 % Basophils (%) (Auto) 0.6 0.0-2.0 % Neutrophils # (Auto) 4.3 1.6-8.6 10 ^3/uL Lymphocytes # (Auto) 2.2 0.4-5.4 10 ^3/uL Monocytes # (Auto) 0.9 0-1.3 10 ^3/uL Eosinophils # (Auto) 0.3 0-0.8 10 ^3/uL Basophils # (Auto) 0 0-0.2 10 ^3/uL Nucleated Red Blood Cells 0.1 % Sodium Level 144 136-145 mmol/L Potassium Level 3.9 3.5-5.1 mmol/L Chloride Level 114 H 98-107 mmol/L Carbon Dioxide Level 23 20-31 mmol/L Anion Gap 7 5-15 Blood Urea Nitrogen 9 9-23 mg/dL Creatinine 0.58 # 0.550-1.02 mg/dL Glomerular Filtration Rate Calc 108 >90 mL/min BUN/Creatinine Ratio 15.5 10.0-20.0 Serum Glucose 84 74-106 mg/dL Calcium Level 9.0 8.7-10.4 mg/dL Total Bilirubin 0.4 0.2-1.0 mg/dL Aspartate Amino Transferase (AST) 14 13-40 U/L Alanine Aminotransferase (ALT) < 9 7-40 U/L Alkaline Phosphatase 75 46-116 U/L Total Protein 6.6 5.7-8.2 g/dL Albumin 4.1 3.2-4.8 g/dL Urine Color Yellow Yellow Urine Clarity Clear Clear Urine pH 5.5 5.0-9.0 Urine Specific [place] 1.019 1.001-1.035 Urine Protein Negative Negative Urine Ketones Trace Negative Urine Blood Negative Negative /uL Urine Nitrite Negative Negative Urine Bilirubin Negative Negative Urine Urobilinogen Normal Negative mg/dL Urine Leukocyte Esterase Negative Negative /uL Urine RBC 1 0 - 4 /hpf Urine Microscopic WBC 2 0-5 /HPF Urine Squamous Epithelial Cells Few <5 /hpf Urine Bacteria None seen None Seen /hpf Urine Mucus Few None Seen Urine Glucose Normal Normal mg/dL Lipase 47 12-53 U/L Assessment Acute intractable abdominal pain Acute colitis likely infectious/inflammatory Hematochezia Dyspepsia Plan - CT abdomen pelvis showed wall thickening of descending and rectosigmoid colon - IV antibiotics - stool cultures pending - stool occult blood pending - patient will likely be scheduled for a colonoscopy early next week - Protonix Plan discussed with Dr. Hahn Plan discussed with: Patient, Other (JOSELITO Meza) RAZA HANCOCK RESIDENT May 01, 2025 13:14
--- NOTE | 2025-05-01 14:43 | DVHPNRES ---
Progress Note Date Seen: May 01, 2025 Resident Creating Document: DARIO HILL RESIDENT Medical Necessity Reason Pt with a Central, PICC or Fol: No Subjective Review of Systems Brief history on arrival: This is a 54-year-old female who presented in the ER with chief complain of lower abdominal pain, diarrhea since 1-1/2 month. Pain started in the lower abdomen suddenly, described as burning, sharp, cramp like, constant, 8/10, without aggravating or relieving factors. Pain is also associated with diarrhea with 9-10 episodes daily, stool is described as pressure-like, mucoid. Patient's diarrhea was preceded by constipation 2 months back. She also reported undergoing a cryotherapy due to a abnormal Pap smear 1-1/2 month back. She was also diagnosed with UTI and took antibiotic course 2 months back. She reports of associated subjective fever, chills. She denies recent travel, eating from food truck, nausea, vomiting, foul-smelling discharge PV. 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 Lives in house with family. Full code Home medication: No home medications, Tylenol as needed for pain PCP: Tulio Ngo Allergic history: No known allergies ROS: Constitutional: Denies weight loss, fever and chills. HEENT: Denies changes in vision and hearing. Respiratory: Denies shortness of breath and cough Cardiovascular: Denies chest discomfort or palpitations GI: Lower abdominal pain, mucoid stools, headache, rashes, joint pain. : Denies dysuria and urinary frequency. Musculoskeletal: Denies myalgias and joint pain Skin: Denies rash and pruritus. Neurological: Denies dizziness, headache, vision or hearing problems 05/01/2025: Patient was seen at bedside today. No diarrheal episodes since yesterday 2:00 p.m. we will discontinue loperamide, pending stool culture and C diff Objective vital signs Vital Sign Date Time Temp Pulse Resp B/P (MAP) Pulse Ox O2 Delivery O2 Flow Rate FiO2 05/01/25 12:57 97.5 65 18 142/87 (105) 99 97.5 05/01/25 08:00 Room Air* 0 21 Total Intake and Output 04/30/25 04/30/25 05/01/25 15:00 23:00 07:00 Intake Total 1000 ml 400 ml Balance 1000 ml 400 ml medications Current Medications Medications Dose Ordered Sig/Ciro Route Start Time Stop Time Status Last Admin Dose Admin Ceftriaxone Sodium 50 ml @ 100 mls/hr DAILY@09 IV 05/01/25 09:00 05/01/25 08:57 100 MLS/HR Metronidazole 100 ml @ 100 mls/hr Q8HR IV 04/30/25 22:00 05/01/25 05:11 100 MLS/HR Acetaminophen/ Hydrocodone Bitart 1 tab Q4HP PRN PO 04/30/25 18:15 05/01/25 05:57 1 TAB Temazepam 15 mg QHSP PRN PO 04/30/25 18:15 04/30/25 21:57 15 MG Ondansetron HCl 4 mg Q4HP PRN IV 04/30/25 18:15 Acetaminophen 650 mg Q6HP PRN PO 04/30/25 18:15 Morphine Sulfate 2 mg Q6HPRN PRN IV 04/30/25 18:15 05/01/25 12:14 2 MG Pantoprazole Sodium 40 mg DAILY IV 05/01/25 10:00 05/01/25 08:57 40 MG Examination General: Patient alert and oriented in person, place and time. Patient following commands. HEENT: Normocephalic, atraumatic, dry mucous membranes Respiratory/pulmonary: Clear lungs bilaterally, vesicular murmurs present in almost all lung beltre, no associated crackles or wheezes. Cardiovascular: Normal heart sounds S1 and S2 with no associated murmurs Abdomen: Lower abdominal tenderness bilaterally without guarding or rigidity. Extremities: There is no peripheral edema present at the lower extremities. Peripheral Pulses: 3+ Radial (R). 3+ Radial (L). 3+ Dorsalis pedis (R). 3+ Dorsalis pedis(L) Skin: Scalp, neck, back erythematous discoid lesions Neurological: Intact cranial nerves with no focal neurologic deficits laboratory and microbiology Laboratory Tests 05/01/25 04:43 Test 05/01/25 04:43 Range/Units Serum Glucose 84 74-106 mg/dL Problem List/Assessment/Plan Problem List/Assessment/Plan Sepsis due to colitis Initial labs show neutrophilic leukocytosis CT abdomen pelvis showed wall thickening of descending and rectosigmoid colon Continue IV ceftriaxone, metronidazole Supportive management with IV NS bolus and maintenance, wound management and Zofran Pending stool WBC, SOB, fecal fat, blood culture, C diff, ova parasite and stool culture Discontinue loperamide, pending stool culture and C diff GI on board, patient will likely be scheduled for a colonoscopy early next week Rheumatoid arthritis History of depression Continue clinical monitoring DIET: Clear liquid diet; advance as tolerated DVT PROPHYLAXIS: Ambulatory; SCD ordered GI PROPHYLAXIS: Protonix CODE STATUS: Goals of care discussed with patient at bedside for more than 35 minutes. Full code DISPOSITION: Med/surge This medical document was created using an electronic medical record system with [employer] direct computerized dictation system. Although this document has been carefully reviewed, there may still be some phonetic and typographical errors. These areas are purely typographical due to imperfections of the software programs, and do not reflect any compromise in the patient's medical care. Patient's status and plan discussed with the patient. Case discussed with Dr. Haro Plan discussed with: Patient, Other (Sister, nurses) Date of Service: May 01, 2025 Billing Provider: PHILIP HARO MD Common Visit Codes: [id number] INP/OBS CARE(HIGH) DARIO HILL RESIDENT May 01, 2025 14:43 PHILIP HARO MD May 02, 2025 17:24
[2025-05-01] MEDS: ONDANSETRON HCL 4 MG/2 ML VIAL IV PRN (15:08)
[2025-05-01 19:39] LABS: Opiate Scree,Urine Neg (NEGATIVE)
[2025-05-01 20:01] LABS: Amphetamine Screen, Urine Neg (NEGATIVE); Barbiturate Scree,Urine Neg (NEGATIVE); Benzodiazephine Screen, Urine Neg (NEGATIVE); Cannabinoid Screen, Urine Neg (NEGATIVE); Cocaine Screen, Urine Neg (NEGATIVE); Phencyclidine Screen, Urine Neg (NEGATIVE)
[2025-05-02] VITALS (8 sets, daily range): BP systolic 95–144; BP diastolic 36–86; PULSE 65–82; RESP 16–18; TEMP 97.2–98.3; O2SAT 97–100
[2025-05-02 07:21] LABS: Hematocrit 44.2 % (36.0-46.0); Hemoglobin 14.9 g/dL (12.2-16.2); Mean Corpuscular Hemoglobin 29.4 pg (28.0-32.0); Mean Corpuscular Volume 87.2 fL (80.0-100.0); Nucleated Red Blood Cells % 0.0 %
[2025-05-02 07:58] LABS: Anion Gap 7 (5-15); Carbon Dioxide 24 mmol/L (20-31); Potassium 4.2 mmol/L (3.5-5.1); Sodium 145 mmol/L (136-145)
[2025-05-02 08:00] LABS: Calcium 9.6 mg/dL (8.7-10.4)
[2025-05-02 08:03] LABS: Chloride 114 mmol/L (98-107)
[2025-05-02 08:04] LABS: Glucose 81 mg/dL (74-106)
[2025-05-02 08:05] LABS: BUN/Creatinine Ratio 8.8 (10.0-20.0); Blood Urea Nitrogen < 5 mg/dL (9-23)
--- NOTE | 2025-05-02 11:32 | DVHPN2 ---
Progress Note Date Seen: May 02, 2025 Resident Creating Document: JHBonJRASHID MoralesMOHIT RESIDENT Medical Necessity Reason Pt with a Central, PICC or Fol: No Subjective Review of Systems Patient reported moderate lower abdominal pain No bowel movement reported since 3 days Tolerating diet well No other acute complaints Objective vital signs Vital Sign Date Time Temp Pulse Resp B/P (MAP) Pulse Ox O2 Delivery O2 Flow Rate FiO2 05/02/25 09:00 97.8 66 16 126/86 (99) 99 97.8 05/01/25 20:00 Room Air* 0 21 Total Intake and Output 05/01/25 05/01/25 05/02/25 15:00 23:00 07:00 Intake Total 50 ml 900 ml 350 ml Balance 50 ml 900 ml 350 ml medications Current Medications Medications Dose Ordered Sig/Ciro Route Start Time Stop Time Status Last Admin Dose Admin Ceftriaxone Sodium 50 ml @ 100 mls/hr DAILY@09 IV 05/01/25 09:00 05/02/25 09:00 100 MLS/HR Metronidazole 100 ml @ 100 mls/hr Q8HR IV 04/30/25 22:00 05/02/25 05:14 100 MLS/HR Acetaminophen/ Hydrocodone Bitart 1 tab Q4HP PRN PO 04/30/25 18:15 05/02/25 10:42 1 TAB Temazepam 15 mg QHSP PRN PO 04/30/25 18:15 05/01/25 21:09 15 MG Ondansetron HCl 4 mg Q4HP PRN IV 04/30/25 18:15 05/01/25 21:06 4 MG Acetaminophen 650 mg Q6HP PRN PO 04/30/25 18:15 Morphine Sulfate 2 mg Q6HPRN PRN IV 04/30/25 18:15 05/01/25 12:14 2 MG Pantoprazole Sodium 40 mg DAILY IV 05/01/25 10:00 05/02/25 10:43 40 MG Polyethylene Glycol 17 gm DAILY PO 05/03/25 10:00 Docusate Sodium 100 mg BID PO 05/02/25 22:00 Examination Gen - no pallor, no scleral icterus Skin - Patients skin is warm and dry. Small scaly lesions around the neck and the upper back and in the scalp HEENT - normocephalic, atraumatic, dry mucous membranes. Neck - supple, no lymphadenopathy Pulmonary - B/L clear breath sounds cardiovascular - regular S1,S2 heard GI - soft abdomen with tenderness to palpation in the lower abdominal quadrants. Bowel sounds normoactive. Neurological - Patient is alert and oriented x4. No motor or sensory weakness laboratory and microbiology Laboratory Tests 05/02/25 05:00 Test 05/02/25 05:00 Range/Units Serum Glucose 81 74-106 mg/dL Problem List/Assessment/Plan Problem List/Assessment/Plan Acute intractable abdominal pain Acute colitis likely infectious/inflammatory Hematochezia Dyspepsia Constipation Plan - CT abdomen pelvis showed wall thickening of descending and rectosigmoid colon - IV antibiotics - stool cultures pending - stool occult blood pending - patient will likely be scheduled for a colonoscopy early next week - Protonix p.o. - MiraLax and Colace for constipation Plan discussed with Dr. Hahn Plan discussed with: Patient, Other (JOSELITO Plummer) My Orders My Orders Orders - RAZA HANCOCK Procedure Category Date Status Time Constanza Direct W/Reflex LAB 05/01/25 In Process To Comp. 12:51 Inflammatory Bowel LAB 05/01/25 In Process Disease-Ibd 12:51 Polyethylene Glycol PHA 05/03/25 In Process 17g Powder (Miralax 10:00 Docusate Sodium PHA 05/02/25 In Process Capsule (Colace 22:00 RAZA HANCOCK RESIDENT May 02, 2025 11:32
[2025-05-02 12:07] LABS: Anti-Nuclear Antibody Direct Negative (Negative)
[2025-05-02] MEDS: POLYETHYLENE GLYCOL 17 GM PWDR PO ONE (12:08)
--- NOTE | 2025-05-02 14:05 | DVHPNRES ---
Progress Note Date Seen: May 02, 2025 Resident Creating Document: FABI GRACE RESIDENT Medical Necessity Reason Pt with a Central, PICC or Fol: No Subjective Review of Systems Patient seen at bedside. Complains of constipation. Reports that the diarrhea has stopped. Unable to obtain stool for culture. Colonoscopy early next week. This is a 54-year-old female who presented in the ER with chief complain of lower abdominal pain, diarrhea since 1-1/2 month. Pain started in the lower abdomen suddenly, described as burning, sharp, cramp like, constant, 8/10, without aggravating or relieving factors. Pain is also associated with diarrhea with 9-10 episodes daily, stool is described as pressure-like, mucoid. Patient's diarrhea was preceded by constipation 2 months back. She also reported undergoing a cryotherapy due to a abnormal Pap smear 1-1/2 month back. She was also diagnosed with UTI and took antibiotic course 2 months back. She reports of associated subjective fever, chills. She denies recent travel, eating from food truck, nausea, vomiting, foul-smelling discharge PV. 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 Lives in house with family. Full code Home medication: No home medications, Tylenol as needed for pain PCP: Tulio Ngo Allergic history: No known allergies ROS: Constitutional: Denies weight loss, fever and chills. HEENT: Denies changes in vision and hearing. Respiratory: Denies shortness of breath and cough Cardiovascular: Denies chest discomfort or palpitations GI: Lower abdominal pain, mucoid stools, headache, rashes, joint pain. : Denies dysuria and urinary frequency. Musculoskeletal: Denies myalgias and joint pain Skin: Denies rash and pruritus. Neurological: Denies dizziness, headache, vision or hearing problems Objective vital signs Vital Sign Date Time Temp Pulse Resp B/P (MAP) Pulse Ox O2 Delivery O2 Flow Rate FiO2 05/02/25 09:00 97.8 66 16 126/86 (99) 99 97.8 05/01/25 20:00 Room Air* 0 21 Total Intake and Output 05/01/25 05/01/25 05/02/25 15:00 23:00 07:00 Intake Total 50 ml 900 ml 350 ml Balance 50 ml 900 ml 350 ml medications Current Medications Medications Dose Ordered Sig/Ciro Route Start Time Stop Time Status Last Admin Dose Admin Ceftriaxone Sodium 50 ml @ 100 mls/hr DAILY@09 IV 05/01/25 09:00 05/02/25 09:00 100 MLS/HR Metronidazole 100 ml @ 100 mls/hr Q8HR IV 04/30/25 22:00 05/02/25 05:14 100 MLS/HR Acetaminophen/ Hydrocodone Bitart 1 tab Q4HP PRN PO 04/30/25 18:15 05/02/25 10:42 1 TAB Temazepam 15 mg QHSP PRN PO 04/30/25 18:15 05/01/25 21:09 15 MG Ondansetron HCl 4 mg Q4HP PRN IV 04/30/25 18:15 05/01/25 21:06 4 MG Acetaminophen 650 mg Q6HP PRN PO 04/30/25 18:15 Morphine Sulfate 2 mg Q6HPRN PRN IV 04/30/25 18:15 05/01/25 12:14 2 MG Polyethylene Glycol 17 gm DAILY PO 05/03/25 10:00 Docusate Sodium 100 mg BID PO 05/02/25 22:00 Pantoprazole Sodium 40 mg DAILY@0600 PO 05/03/25 06:00 Examination General: Patient alert and oriented in person, place and time. Patient following commands. HEENT: Normocephalic, atraumatic, dry mucous membranes Respiratory/pulmonary: Clear lungs bilaterally, vesicular murmurs present in almost all lung beltre, no associated crackles or wheezes. Cardiovascular: Normal heart sounds S1 and S2 with no associated murmurs Abdomen: Lower abdominal tenderness bilaterally without guarding or rigidity. Extremities: There is no peripheral edema present at the lower extremities. Peripheral Pulses: 3+ Radial (R). 3+ Radial (L). 3+ Dorsalis pedis (R). 3+ Dorsalis pedis(L) Skin: Scalp, neck, back erythematous discoid lesions Neurological: Intact cranial nerves with no focal neurologic deficits laboratory and microbiology Laboratory Tests 05/02/25 05:00 Test 05/02/25 05:00 Range/Units Serum Glucose 81 74-106 mg/dL Microbiology Date/Time Source Procedure Growth Status 05/02/25 12:08 Stool Received Problem List/Assessment/Plan Problem List/Assessment/Plan Assessment and plan Sepsis due to colitis Diet advance to mechanical soft diet Initial labs show neutrophilic leukocytosis CT abdomen pelvis showed wall thickening of descending and rectosigmoid colon Continue IV ceftriaxone, metronidazole Supportive management with IV NS bolus and maintenance, wound management and Zofran Pending stool WBC, SOB, fecal fat, blood culture, C diff, ova parasite and stool culture Discontinue loperamide, pending stool culture and C diff GI on board, patient will likely be scheduled for a colonoscopy early next week Rheumatoid arthritis History of depression Continue clinical monitoring Pulmonary nodule Follow up with PCP on discharge. DIET: Mechanical soft diet DVT PROPHYLAXIS: Ambulatory; SCD ordered GI PROPHYLAXIS: Protonix DISPOSITION: Med/surge Case discussed with Dr. Haro Plan discussed with: Patient My Orders My Orders Orders - FABI GRACE Procedure Category Date Status Time Complete Blood Count LAB 05/03/25 Verified 04:00 Mechanical Soft Diet DIET 05/02/25 Transmitted Lunch Date of Service: May 02, 2025 Billing Provider: PHILIP HARO MD Common Visit Codes: [id number] INP/OBS CARE(HIGH) FABI GRACE May 02, 2025 14:05 PHILIP HARO MD May 02, 2025 17:24
[2025-05-02] MEDS: DOCUSATE SOD 100 MG CAP PO SCH (21:12)
[2025-05-03] VITALS (10 sets, daily range): BP systolic 110–166; BP diastolic 51–86; PULSE 60–79; RESP 16–20; TEMP 97.3–98.1; O2SAT 95–100
[2025-05-03 06:08] LABS: Hematocrit 41.6 % (36.0-46.0); Hemoglobin 14.1 g/dL (12.2-16.2); Mean Corpuscular Hemoglobin 29.5 pg (28.0-32.0); Mean Corpuscular Volume 87.3 fL (80.0-100.0); Nucleated Red Blood Cells % 0.0 %
[2025-05-03] MEDS: PANTOPRAZOLE 40 MG TAB PO SCH (06:26)
[2025-05-03] MEDS: POLYETHYLENE GLYCOL 17 GM PWDR PO SCH (08:58)
--- NOTE | 2025-05-03 11:23 | DVHPN2 ---
Progress Note - Dictate Date Seen: May 03, 2025 Medical Necessity Reason Pt with a Central, PICC or Fol: No Subjective Patient continues to complain of abdominal pain One bowel movement recorded Stool for WBC and occult blood was negative Leukocytosis is improving vital signs Vital Sign Date Time Temp Pulse Resp B/P (MAP) Pulse Ox O2 Delivery O2 Flow Rate FiO2 05/03/25 09:00 98.1 64 19 120/77 (91) 100 98.1 05/03/25 08:00 Room Air* 0 21 Total Intake and Output 05/02/25 05/02/25 05/03/25 15:00 23:00 07:00 Intake Total 50 ml 1000 ml 850 ml Balance 50 ml 1000 ml 850 ml medications Current Medications Medications Dose Ordered Sig/Ciro Route Start Time Stop Time Status Last Admin Dose Admin Ceftriaxone Sodium 50 ml @ 100 mls/hr DAILY@09 IV 05/01/25 09:00 05/03/25 08:58 100 MLS/HR Metronidazole 100 ml @ 100 mls/hr Q8HR IV 04/30/25 22:00 05/03/25 06:26 100 MLS/HR Acetaminophen/ Hydrocodone Bitart 1 tab Q4HP PRN PO 04/30/25 18:15 05/03/25 08:57 1 TAB Temazepam 15 mg QHSP PRN PO 04/30/25 18:15 05/01/25 21:09 15 MG Ondansetron HCl 4 mg Q4HP PRN IV 04/30/25 18:15 05/02/25 15:38 4 MG Acetaminophen 650 mg Q6HP PRN PO 04/30/25 18:15 Morphine Sulfate 2 mg Q6HPRN PRN IV 04/30/25 18:15 05/01/25 12:14 2 MG Polyethylene Glycol 17 gm DAILY PO 05/03/25 10:00 Docusate Sodium 100 mg BID PO 05/02/25 22:00 05/02/25 21:12 100 MG Pantoprazole Sodium 40 mg DAILY@0600 PO 05/03/25 06:00 05/03/25 06:26 40 MG objective Gen - no pallor, no scleral icterus Skin - Patients skin is warm and dry. Small scaly lesions around the neck and the upper back and in the scalp HEENT - normocephalic, atraumatic, dry mucous membranes. Neck - supple, no lymphadenopathy Pulmonary - B/L clear breath sounds cardiovascular - regular S1,S2 heard GI - soft abdomen with tenderness to palpation in the lower abdominal quadrants. Bowel sounds normoactive. Neurological - Patient is alert and oriented x4. No motor or sensory weakness laboratory and microbiology Laboratory Tests 05/03/25 05:27 05/02/25 05:00 Test 05/02/25 05:00 Range/Units Serum Glucose 81 74-106 mg/dL Problems(with codes): (1) Leukocytosis (2) Abdominal pain (3) Colitis Prognosis Plan Clear liquid diet today Bowel prep tonight Patient will be scheduled for colonoscopy on 05/04/2025 Risks and alts were explained Plan discussed with: Patient, Other ( Jhajj) CALE RIVERA MD May 03, 2025 11:23
--- NOTE | 2025-05-03 11:56 | DVHPNRES ---
Progress Note Date Seen: May 03, 2025 Resident Creating Document: DARIO HILL RESIDENT Medical Necessity Reason Pt with a Central, PICC or Fol: No Subjective Review of Systems Brief history on arrival: This is a 54-year-old female who presented in the ER with chief complain of lower abdominal pain, diarrhea since 1-1/2 month. Pain started in the lower abdomen suddenly, described as burning, sharp, cramp like, constant, 8/10, without aggravating or relieving factors. Pain is also associated with diarrhea with 9-10 episodes daily, stool is described as pressure-like, mucoid. Patient's diarrhea was preceded by constipation 2 months back. She also reported undergoing a cryotherapy due to a abnormal Pap smear 1-1/2 month back. She was also diagnosed with UTI and took antibiotic course 2 months back. She reports of associated subjective fever, chills. She denies recent travel, eating from food truck, nausea, vomiting, foul-smelling discharge PV. 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 Lives in house with family. Full code Home medication: No home medications, Tylenol as needed for pain PCP: Tulio Ngo Allergic history: No known allergies 05/01/2025: No diarrheal episodes since yesterday 2:00 p.m. we will discontinue loperamide, pending stool culture and C diff 05/02/2025: Complains of constipation. Reports that the diarrhea has stopped. Unable to obtain stool for culture. Colonoscopy early next week. 05/03/2025: Patient was seen at bedside today. Complains of cramp like pain around the umbilicus. She also reported 1 episode of bowel movement with fresh blood seen on stools yesterday. No bowel movements reported today. Colonoscopy scheduled for tomorrow, started on bowel prep Objective vital signs Vital Sign Date Time Temp Pulse Resp B/P (MAP) Pulse Ox O2 Delivery O2 Flow Rate FiO2 05/03/25 09:00 98.1 64 19 120/77 (91) 100 98.1 05/03/25 08:00 Room Air* 0 21 Total Intake and Output 05/02/25 05/02/25 05/03/25 15:00 23:00 07:00 Intake Total 50 ml 1000 ml 850 ml Balance 50 ml 1000 ml 850 ml medications Current Medications Medications Dose Ordered Sig/Ciro Route Start Time Stop Time Status Last Admin Dose Admin Ceftriaxone Sodium 50 ml @ 100 mls/hr DAILY@09 IV 05/01/25 09:00 05/03/25 08:58 100 MLS/HR Metronidazole 100 ml @ 100 mls/hr Q8HR IV 04/30/25 22:00 05/03/25 06:26 100 MLS/HR Acetaminophen/ Hydrocodone Bitart 1 tab Q4HP PRN PO 04/30/25 18:15 05/03/25 08:57 1 TAB Temazepam 15 mg QHSP PRN PO 04/30/25 18:15 05/01/25 21:09 15 MG Ondansetron HCl 4 mg Q4HP PRN IV 04/30/25 18:15 05/02/25 15:38 4 MG Acetaminophen 650 mg Q6HP PRN PO 04/30/25 18:15 Polyethylene Glycol 17 gm DAILY PO 05/03/25 10:00 Docusate Sodium 100 mg BID PO 05/02/25 22:00 05/02/25 21:12 100 MG Pantoprazole Sodium 40 mg DAILY@0600 PO 05/03/25 06:00 05/03/25 06:26 40 MG Morphine Sulfate 2 mg Q6HPRN PRN IV 05/03/25 11:45 Examination General: Patient alert and oriented in person, place and time. Patient following commands. HEENT: Normocephalic, atraumatic, dry mucous membranes Respiratory/pulmonary: Clear lungs bilaterally, vesicular murmurs present in almost all lung beltre, no associated crackles or wheezes. Cardiovascular: Normal heart sounds S1 and S2 with no associated murmurs Abdomen: Generalized abdominal tenderness, localized in the umbilical area on light palpation. Extremities: There is no peripheral edema present at the lower extremities. Peripheral Pulses: 3+ Radial (R). 3+ Radial (L). 3+ Dorsalis pedis (R). 3+ Dorsalis pedis(L) Skin: Scalp, neck, back erythematous discoid lesions Neurological: Intact cranial nerves with no focal neurologic deficits laboratory and microbiology Laboratory Tests 05/03/25 05:27 05/02/25 05:00 Test 05/02/25 05:00 Range/Units Serum Glucose 81 74-106 mg/dL Microbiology Date/Time Source Procedure Growth Status 05/02/25 12:08 Stool Stool Culture - Preliminary Resulted 05/02/25 12:08 Stool Shiga Toxin I & II - Final Resulted 05/01/25 16:55 Blood Blood Culture - Preliminary NO GROWTH AFTER 24 HOURS OF INCUBATION. Resulted Problem List/Assessment/Plan Problem List/Assessment/Plan Sepsis due to colitis Intractable abdominal pain due to above Initial labs show neutrophilic leukocytosis CT abdomen pelvis showed wall thickening of descending and rectosigmoid colon Continue IV ceftriaxone, metronidazole Supportive management with IV NS bolus and maintenance, wound management and Zofran Pending blood culture, C diff, ova parasite and stool culture Labs negative for stool occult blood and WBCs Discontinue loperamide, pending stool culture and C diff GI on board, patient scheduled for a colonoscopy tomorrow, transitioned to clear liquid diet, started bowel prep Rheumatoid arthritis History of depression Continue clinical monitoring DIET: Clear liquid diet; advance as tolerated DVT PROPHYLAXIS: Ambulatory; SCD ordered GI PROPHYLAXIS: Protonix CODE STATUS: Goals of care discussed with patient at bedside for more than 18 minutes. Full code DISPOSITION: Med/surge This medical document was created using an electronic medical record system with M*M flurency direct computerized dictation system. Although this document has been carefully reviewed, there may still be some phonetic and typographical errors. These areas are purely typographical due to imperfections of the software programs, and do not reflect any compromise in the patient's medical care. Patient's status and plan discussed with the patient. Case discussed with Dr. Haro Plan discussed with: Patient, Other (Sister, nurses) Date of Service: May 03, 2025 Billing Provider: PHILIP HARO MD Common Visit Codes: [id number] INP/OBS CARE(HIGH) DARIO HILL RESIDENT May 03, 2025 11:56 PHILIP HARO MD May 03, 2025 15:38
[2025-05-03] MEDS: MORPHINE SULFATE 4 MG/ML SYR/VIAL IV PRN (12:14)
[2025-05-03] MEDS: GOLYTELY 4L KIT PO ONE (12:15)
[2025-05-04] VITALS (8 sets, daily range): BP systolic 101–141; BP diastolic 63–82; PULSE 62–82; RESP 12–20; TEMP 97.6–97.8; O2SAT 95–98
--- NOTE | 2025-05-04 05:14 | DVH ---
CHEST RADIOGRAPH Indication: pre-op Technique: Single frontal view of the chest was obtained Comparison: XR CHEST 2 VIEW on DOS: 03/26/25 FINDINGS: Lines and Tubes: None Lungs: No focal consolidation. Pleura: No effusion. No pneumothorax. Cardiomediastinal contours: Unremarkable Bones: No acute osseous abnormality. IMPRESSION: 1. No acute cardiopulmonary disease.
[2025-05-04 05:53] LABS: Potassium 3.9 mmol/L (3.5-5.1); Sodium 145 mmol/L (136-145)
[2025-05-04 05:54] LABS: Anion Gap 7 (5-15); Calcium 9.6 mg/dL (8.7-10.4); Carbon Dioxide 27 mmol/L (20-31); Chloride 111 mmol/L (98-107)
[2025-05-04 05:59] LABS: BUN/Creatinine Ratio 8.3 (10.0-20.0); Blood Urea Nitrogen < 5 mg/dL (9-23); Glucose 100 mg/dL (74-106)
[2025-05-04] MEDS: GOLYTELY 4L KIT PO ONE (06:20)
[2025-05-04] MEDS: MAGNESIUM CITRATE SOLUTION 300 ML BTL PO ONE (06:26)
[2025-05-04] MEDS: ACETAMINOPHEN 325 MG TAB PO PRN (06:38)
--- NOTE | 2025-05-04 06:57 | DVHPNRES ---
Progress Note Date Seen: May 04, 2025 Resident Creating Document: ABHISHEK GASTELUM RESIDENT Medical Necessity Reason Pt with a Central, PICC or Fol: No Subjective Review of Systems Patient seen and examined at bedside Expresses some discomfort over continuing with bowel prep last night Scheduled for colonoscopy today Denies any new complaints overnight Objective vital signs Vital Sign Date Time Temp Pulse Resp B/P (MAP) Pulse Ox O2 Delivery O2 Flow Rate FiO2 05/04/25 05:00 97.7 62 18 101/63 (76) 95 97.7 05/03/25 20:00 Room Air* 0 21 Total Intake and Output 05/03/25 05/03/25 05/04/25 15:00 23:00 07:00 Intake Total 800 ml 2400 ml Output Total 1000 ml Balance -200 ml 2400 ml medications Current Medications Medications Dose Ordered Sig/Ciro Route Start Time Stop Time Status Last Admin Dose Admin Ceftriaxone Sodium 50 ml @ 100 mls/hr DAILY@09 IV 05/01/25 09:00 05/03/25 08:58 100 MLS/HR Metronidazole 100 ml @ 100 mls/hr Q8HR IV 04/30/25 22:00 05/04/25 06:19 100 MLS/HR Acetaminophen/ Hydrocodone Bitart 1 tab Q4HP PRN PO 04/30/25 18:15 05/03/25 08:57 1 TAB Temazepam 15 mg QHSP PRN PO 04/30/25 18:15 05/01/25 21:09 15 MG Ondansetron HCl 4 mg Q4HP PRN IV 04/30/25 18:15 05/03/25 11:33 4 MG Acetaminophen 650 mg Q6HP PRN PO 04/30/25 18:15 05/04/25 06:38 650 MG Polyethylene Glycol 17 gm DAILY PO 05/03/25 10:00 Docusate Sodium 100 mg BID PO 05/02/25 22:00 05/02/25 21:12 100 MG Pantoprazole Sodium 40 mg DAILY@0600 PO 05/03/25 06:00 05/04/25 06:19 40 MG Morphine Sulfate 2 mg Q6HPRN PRN IV 05/03/25 11:45 05/03/25 18:59 2 MG Examination General: Patient alert and oriented in person, place and time. Patient following commands. HEENT: Normocephalic, atraumatic, dry mucous membranes Respiratory/pulmonary: Clear lungs bilaterally, vesicular murmurs present in almost all lung beltre, no associated crackles or wheezes. Cardiovascular: Normal heart sounds S1 and S2 with no associated murmurs Abdomen: Generalized abdominal tenderness, localized in the umbilical area on light palpation. Extremities: There is no peripheral edema present at the lower extremities. Peripheral Pulses: 3+ Radial (R). 3+ Radial (L). 3+ Dorsalis pedis (R). 3+ Dorsalis pedis(L) Skin: Scalp, neck, back erythematous discoid lesions Neurological: Intact cranial nerves with no focal neurologic deficits laboratory and microbiology Laboratory Tests 05/04/25 05:10 05/03/25 05:27 Test 05/04/25 05:10 Range/Units Serum Glucose 100 74-106 mg/dL Microbiology Date/Time Source Procedure Growth Status 05/02/25 12:08 Stool Stool Culture - Preliminary Resulted 05/02/25 12:08 Stool Shiga Toxin I & II - Final Resulted 05/01/25 16:55 Blood Blood Culture - Preliminary NO GROWTH AFTER 48 HOURS OF INCUBATION. Resulted Labs and/or images reviewed: Labs reviewed by me, Image(s) reviewed by me Problem List/Assessment/Plan Problem List/Assessment/Plan Sepsis due to colitis Intractable abdominal pain due to above Initial labs show neutrophilic leukocytosis CT abdomen pelvis showed wall thickening of descending and rectosigmoid colon Continue IV ceftriaxone, metronidazole Supportive management with IV NS bolus and maintenance, wound management and Zofran Pending blood culture, C diff, ova parasite and stool culture Labs negative for stool occult blood and WBCs Discontinue loperamide, pending stool culture and C diff GI on board, patient scheduled for a colonoscopy today Rheumatoid arthritis History of depression Continue clinical monitoring DIET: Clear liquid diet; advance as tolerated DVT PROPHYLAXIS: Ambulatory; SCD ordered GI PROPHYLAXIS: Protonix CODE STATUS: Goals of care discussed with patient at bedside for more than 18 minutes. Full code DISPOSITION: Med/surge This medical document was created using an electronic medical record system with M*M flurency direct computerized dictation system. Although this document has been carefully reviewed, there may still be some phonetic and typographical errors. These areas are purely typographical due to imperfections of the software programs, and do not reflect any compromise in the patient's medical care. Patient's status and plan discussed with the patient. Case discussed with Dr. Byrnes Plan discussed with: Patient, Other (RN) Date of Service: May 04, 2025 Billing Provider: ANDREA BYRNES MD Common Visit Codes: [id number] INP/OBS CARE(HIGH) ABHISHEK GASTELUM RESIDENT May 04, 2025 06:57 ANDREA BYRNES MD May 04, 2025 17:49
--- NOTE | 2025-05-04 08:03 | ECG ---
[facility] Test Date: 2025-05-04 Test Time: 04:49:05 Pat Name: LIZBETH VALADEZ Department: Respiratoy Room: 0206 A Gender: F [employer]: : 1970 Requested By: DARIO HILL Order Number: [id number] Reading MD: Armand Reyes Measurements Intervals [place] Rate: 73 P: 53 TX: 132 QRS: 70 QRSD: 92 T: 51 QT: 394 QTc: 435 Interpretive Statements Sinus rhythm Probable anteroseptal infarct, old Electronically Signed On 05-04-2025 11:12:43 PST by Armand Reyes Please click the below link to view image of tracing.
[2025-05-04] MEDS: SODIUM CHLORIDE 0.9% 1,000 ML IV ONE (10:58)
[2025-05-04] MEDS ORDERED: PROPOFOL 10 MG/ML 20 ML IV ONE (15:18)
[2025-05-04] MEDS ORDERED: MIDAZOLAM HCL 2MG/2ML 2ml VIAL (1mg/ml) ONE (15:18)
[2025-05-04] MEDS ORDERED: MEPERIDINE HCL (25 MG/ML) 1ML VIAL ONE (15:26)
--- NOTE | 2025-05-04 15:52 | DVHOP2 ---
Operative Report DATE OF OPERATION: 05/04/25 PROCEDURE: Colonoscopy with cold biopsy polypectomy PREOPERATIVE INDICATION: The patient is a 54 -year-old female undergoing colonoscopy for evaluation of left lower quadrant pain suspected colitis on CT abdomen POSTOPERATIVE DIAGNOSES: 1. Minimal nonspecific colitis with a few superficial aphthous like ulcerations seen at the hepatic flexure splenic flexure and the descending colon from which biopsies were obtained 2. There was a 2 mm benign-appearing descending colon polyp that was seen and removed by cold biopsy forceps 3. There was a 2 mm benign-appearing sigmoid polyp was that was seen and removed by cold biopsy forceps 4. 1+ internal hemorrhoids otherwise essentially completely normal colonoscopy examination up to the cecum and terminal ileum PROCEDURE PERFORMED BY: Cale Hahn M.D. SCOPE: Olympus videocolonoscope. ASA CLASS: 2 PREOPERATIVE MEDICATIONS: Dr. Bubba Moya PROCEDURE IN DETAIL: After obtaining an informed consent, the patient was placed on left lateral decubitus position. She was then sedated with the above medications. A rectal examination was performed that was normal. The colonoscope was then passed through the anus into the rectosigmoid and through the descending, transverse, and ascending colon up to the cecum with visualization of the appendiceal orifice, base of the cecum and the ileocecal valve. The colonoscope was then withdrawn. The distal 3-5 cm of the terminal ileum were normal No masses or clear-cut diverticular disease were seen. Patient had minimal nonspecific colitis There were some superficial aphthous like ulceration seen in the hepatic flexure and the splenic flexure and proximal descending colon area Biopsies were obtained from this area and from the sigmoid colon. Patient had a 2 mm benign-appearing proximal descending colon polyp that was removed by cold biopsy forceps There was another 2 mm benign-appearing sigmoid polyp that was seen and removed by cold biopsy forceps On retroflexion and straight on view there was trace to 1+ internal hemorrhoids The patient tolerated the procedure well without difficulty. WITHDRAWAL TIME: 12 minutes QUALITY OF THE PREP: [place] Bowel Prep score: 8. COMPLICATIONS : None SPECIMENS: Random colon biopsies Descending colon polyp Sigmoid polyp DISPOSITION: Transfer back to the floor Stable PLAN: 1. Repeat colonoscopy base on biopsy result likely in five years 2. Resume GI soft diet advance as tolerated 3. Bentyl 10 mg p.o. three times a day as needed for pain 4. Discontinue aspirin NSAIDs smoking alcohol 5. Outpatient follow up with me to review results and discuss further management 6. If symptoms persist consider trial of mesalamine and budesonide CALE HAHN MD May 04, 2025 15:52
[2025-05-04] MEDS ORDERED: DICYCLOMINE HCL 10 MG CAP PO PRN (16:00)
[2025-05-04] MEDS: MESALAMINE 400mg Delayed Release Cap PO SCH (21:19)
[2025-05-05 01:00] VITALS: BP 105/70; PULSE 77; RESP 19; TEMP 97.5; O2SAT 98
[2025-05-05 05:00] VITALS: BP 124/85; PULSE 75; RESP 19; TEMP 97.8; O2SAT 97
[2025-05-05 06:33] LABS: Alanine Aminotransferase 10 U/L (7-40); Albumin 3.9 g/dL (3.2-4.8); Alkaline Phosphatase 76 U/L (46-116); Anion Gap 7 (5-15); Calcium 9.1 mg/dL (8.7-10.4); Carbon Dioxide 27 mmol/L (20-31); Glucose 84 mg/dL (74-106); Potassium 3.8 mmol/L (3.5-5.1); Total Protein 6.6 g/dL (5.7-8.2)
[2025-05-05 06:34] LABS: Bilirubin, Total 0.3 mg/dL (0.2-1.0)
[2025-05-05 06:35] LABS: BUN/Creatinine Ratio 8.6 (10.0-20.0); Blood Urea Nitrogen < 5 mg/dL (9-23); Chloride 113 mmol/L (98-107); Sodium 147 mmol/L (136-145)
[2025-05-05 08:00] VITALS: PULSE 77; RESP 18; O2SAT 98
[2025-05-05 08:41] VITALS: BP 148/78; PULSE 86; RESP 20; TEMP 97.7; O2SAT 100
[2025-05-05] MEDS: LACTATED RINGER'S 250 ML IV ONE (09:51)
[2025-05-05] MEDS ORDERED: PANT40T PO (11:31)
[2025-05-05] MEDS ORDERED: DICY10CA PO (11:31)
[2025-05-05] MEDS ORDERED: MESA400C PO (11:31)
[2025-05-05 12:39] VITALS: BP 144/89; PULSE 65; RESP 20; TEMP 97.5; O2SAT 99
--- NOTE | 2025-05-05 12:55 | DVHDSRES ---
Discharge Summary Date of Admission Resident Creating Document: ABHISHEK GASTELUM RESIDENT Apr 30, 2025 at 18:08 Date of Discharge: May 05, 2025 Labs/Diagnostic Data: Laboratory Results Test 05/05/25 04:41 05/03/25 05:27 05/02/25 12:08 05/01/25 18:35 Sodium Level 147 mmol/L (136-145) Potassium Level 3.8 mmol/L (3.5-5.1) Chloride Level 113 mmol/L (98-107) Carbon Dioxide Level 27 mmol/L (20-31) Anion Gap 7 (5-15) Blood Urea Nitrogen < 5 mg/dL (9-23) Creatinine 0.58 mg/dL (0.550-1.02) Glomerular Filtration Rate Calc 108 mL/min (>90) BUN/Creatinine Ratio 8.6 (10.0-20.0) Serum Glucose 84 mg/dL (74-106) Calcium Level 9.1 mg/dL (8.7-10.4) Total Bilirubin 0.3 mg/dL (0.2-1.0) Aspartate Amino Transferase (AST) 18 U/L (13-40) Alanine Aminotransferase (ALT) 10 U/L (7-40) Alkaline Phosphatase 76 U/L (46-116) Total Protein 6.6 g/dL (5.7-8.2) Albumin 3.9 g/dL (3.2-4.8) White Blood Count 7.4 10^3/uL (4.4-10.8) Red Blood Count 4.77 10^6/uL (4.0-5.20) Hemoglobin 14.1 g/dL (12.2-16.2) Hematocrit 41.6 % (36.0-46.0) Mean Corpuscular Volume 87.3 fL (80.0-100.0) Mean Corpuscular Hemoglobin 29.5 pg (28.0-32.0) Mean Corpuscular Hemoglobin Concent 33.8 g/dL (32.0-36.0) Red Cell Distribution Width 14.1 % (11.8-14.3) Platelet Count 334 10^3/uL (140-450) Mean Platelet Volume 8.6 fL (6.9-10.8) Neutrophils (%) (Auto) 52.9 % (37.0-80.0) Lymphocytes (%) (Auto) 29.9 % (10.0-50.0) Monocytes (%) (Auto) 9.9 % (0.0-12.0) Eosinophils (%) (Auto) 6.6 % (0.0-7.0) Basophils (%) (Auto) 0.7 % (0.0-2.0) Neutrophils # (Auto) 3.9 10 ^3/uL (1.6-8.6) Lymphocytes # (Auto) 2.2 10 ^3/uL (0.4-5.4) Monocytes # (Auto) 0.7 10 ^3/uL (0-1.3) Eosinophils # (Auto) 0.5 10 ^3/uL (0-0.8) Basophils # (Auto) 0.1 10 ^3/uL (0-0.2) Nucleated Red Blood Cells 0.0 % Stool Occult Blood Negative (Negative) Stool Occult Blood Sample #3 (Negative) Stool for White Cells None seen Urine Opiates Screen Neg (NEGATIVE) Urine Fentanyl Screen Neg (NEGATIVE) Urine Barbiturates Screen Neg (NEGATIVE) Urine Phencyclidine Screen Neg (NEGATIVE) Urine Amphetamines Screen Neg (NEGATIVE) Urine Benzodiazepines Screen Neg (NEGATIVE) Urine Cocaine Screen Neg (NEGATIVE) Urine Cannabinoids Screen Neg (NEGATIVE) Test 05/01/25 13:28 05/01/25 10:30 04/30/25 15:27 04/30/25 14:42 Anti-Nuclear Antibody Screen Negative (Negative) Atypical p-ANCA <1:20 titer (Neg:<1:20) Saccharomyces cerevisiae IgG Ab <20.0 Units (0.0-24.9) Saccharomyces cerevisiae IgA Ab <20.0 Units (0.0-24.9) Prothrombin Time 11.0 sec (9.3-11.8) Prothrombin Time INR 1.04 (0.9-1.15) Lactic Acid Level 1.0 mmol/L (0.4-2.0) Carcinoembryonic Antigen 2.73 ng/mL (<=5.0) Thyroid Stimulating Hormone (TSH) 1.64 uIU/mL (0.55-4.78) Beta HCG, Quantitative 3.2 mIU/mL (1.5-4.2) HIV (1&2) Antibody Negative (Negative) Urine Color Yellow (Yellow) Urine Clarity Clear (Clear) Urine pH 5.5 (5.0-9.0) Urine Specific [place] 1.019 (1.001-1.035) Urine Protein Negative (Negative) Urine Ketones Trace (Negative) Urine Blood Negative /uL (Negative) Urine Nitrite Negative (Negative) Urine Bilirubin Negative (Negative) Urine Urobilinogen Normal mg/dL (Negative) Urine Leukocyte Esterase Negative /uL (Negative) Urine RBC 1 /hpf (0 - 4) Urine Microscopic WBC 2 /HPF (0-5) Urine Squamous Epithelial Cells Few /hpf (<5) Urine Bacteria None seen /hpf (None Seen) Urine Mucus Few (None Seen) Urine Glucose Normal mg/dL (Normal) Lipase 47 U/L (12-53) Other Laboratory Tests 05/05/25 04:41 05/03/25 05:27 Brief Hx & Hospital Course: Brief history on arrival: This is a 54-year-old female who presented in the ER with chief complain of lower abdominal pain, diarrhea since 1-1/2 month. Pain started in the lower abdomen suddenly, described as burning, sharp, cramp like, constant, 8/10, without aggravating or relieving factors. Pain is also associated with diarrhea with 9-10 episodes daily, stool is described as pressure-like, mucoid. Patient's diarrhea was preceded by constipation 2 months back. She also reported undergoing a cryotherapy due to a abnormal Pap smear 1-1/2 month back. She was also diagnosed with UTI and took antibiotic course 2 months back. She reports of associated subjective fever, chills. She denies recent travel, eating from food truck, nausea, vomiting, foul-smelling discharge PV. Hospital course: Patient was admitted along the lines of intractable abdominal pain and diarrhea. Initial labs show neutrophilic leukocytosis. CT abdomen pelvis showed wall thickening of descending and rectosigmoid colon . She was started on supportive management with IV normal saline, pain management, Zofran and IV antibiotics with ceftriaxone, metronidazole. GI was consulted, patient was undertaken for colonoscopy. Colonoscopy revealed superficial aphthous ulcers at hepatic flexure, splenic flexure and descending colon, 2 mm benign polyps in descending colon and sigmoid colon ( which were resected), 1+ internal hemorrhoids. she was started on a trial of mesalamine and budesonide. She reports improvement in in her symptoms of diarrhea and abdominal pain. She is stable for discharge and will follow-up with GI in outpatient clinic. Conditions managed during stay: Sepsis due to colitis Intractable abdominal pain due to above Superficial aphthous ulcers at hepatic flexure, splenic flexure and descending colon 2mm polyps in descending colon and sigmoid colon, likely benign Internal hemorrhoids Rheumatoid arthritis History of depression Plan: 1. Repeat colonoscopy base on biopsy result likely in five years 2. Bentyl 10 mg p.o. three times a day as needed for pain 3. Continue mesalamine p.o. TID 4. Continue Pantoprazole p.o daily 5. Outpatient follow up with GI 6. Follow up with PCP in 1 week Consults/Reason for consult GI was consulted, recommended colonoscopy. Resected polyps during colonoscopy. Repeat colonoscopy base on biopsy result likely in five years. Operations or Procedures CHEST RADIOGRAPH Indication: pre-op Technique: Single frontal view of the chest was obtained Comparison: XR CHEST 2 VIEW on DOS: 03/26/25 FINDINGS: Lines and Tubes: None Lungs: No focal consolidation. Pleura: No effusion. No pneumothorax. Cardiomediastinal contours: Unremarkable Bones: No acute osseous abnormality. IMPRESSION: 1. No acute cardiopulmonary disease. Indication: LOWER ABD PAIN WITH DIARRHEA X 1.5 MONTHS Technique: CT axial images of the abdomen and pelvis are obtained without contrast. Coronal and sagittal reformats were obtained. Radiation Dose Information: CTDI volume is 9 mGy. Dose-length product is 430 mGy*cm Comparison: None FINDINGS: There is limited interpretation of the abdomen and pelvis without administration of intravenous contrast. Lung bases demonstrate 4 mm right lower lobe solid nodule. Adrenal glands demonstrate 2.5 cm left adrenal adenoma. Spleen, pancreas and liver unremarkable in shape. No CT evidence for cholelithiasis. No hydronephrosis, nephrolithiasis. Gastric distention. Small bowel loops normal in caliber. Moderate volume stool in the colon. There are no secondary signs for appendicitis. Mild bowel wall thickening of the descending and rectosigmoid colon. Abdominal aortic atherosclerotic disease. Bladder partially distended. No free pelvic fluid. No inguinal lymphadenopathy. Wgtu-[id number]-xmvisryy bilateral sacroiliac degenerative joint disease. [place]vup-se-onoplwea thoracolumbar degenerative disc disease. IMPRESSION: Limited evaluation without contrast. Mild bowel wall thickening of the descending and rectosigmoid colon. Correlate for colitis, inflammatory bowel disease. No hydronephrosis, nephrolithiasis. 4 mm right lower lobe solid nodule. Recommend follow-up per fleischner society criteria. Atherosclerotic disease. Other findings as described. Technique: Real-time ultrasound images through the pelvis using a transabdominal transducer. For better evaluation of the ovaries and endometrial stripe, an endovaginal transducer was used. Indication: PELVIC PAIN X 1.5 MONTHS Comparison: None Findings: The uterus measures 5.9 cm. The endometrial stripe measures 3 mm. There are no focal masses. There is no abnormal flow in the endometrium. Cervical nabothian cysts measuring 2.5 cm. Right ovary measures 2.5 x 1.9 x 3.6 cm. Normal flow on color doppler images. No focal masses are identified. Left ovary nonvisualized. There is no significant free fluid in the pelvis. Impression: Left ovary nonvisualized. Otherwise unremarkable pelvic ultrasound. Operative Report DATE OF OPERATION: 05/04/25 PROCEDURE: Colonoscopy with cold biopsy polypectomy PREOPERATIVE INDICATION: The patient is a 54 -year-old female undergoing colonoscopy for evaluation of left lower quadrant pain suspected colitis on CT abdomen POSTOPERATIVE DIAGNOSES: 1. Minimal nonspecific colitis with a few superficial aphthous like ulcerations seen at the hepatic flexure splenic flexure and the descending colon from which biopsies were obtained 2. There was a 2 mm benign-appearing descending colon polyp that was seen and removed by cold biopsy forceps 3. There was a 2 mm benign-appearing sigmoid polyp was that was seen and removed by cold biopsy forceps 4. 1+ internal hemorrhoids otherwise essentially completely normal colonoscopy examination up to the cecum and terminal ileum PROCEDURE PERFORMED BY: Allie Hahn M.D. SCOPE: Olympus videocolonoscope. ASA CLASS: 2 PREOPERATIVE MEDICATIONS: Mac sedation, Dr. Mac PROCEDURE IN DETAIL: After obtaining an informed consent, the patient was placed on left lateral decubitus position. She was then sedated with the above medications. A rectal examination was performed that was normal. The colonoscope was then passed through the anus into the rectosigmoid and through the descending, transverse, and ascending colon up to the cecum with visualization of the appendiceal orifice, base of the cecum and the ileocecal valve. The colonoscope was then withdrawn. The distal 3-5 cm of the terminal ileum were normal No masses or clear-cut diverticular disease were seen. Patient had minimal nonspecific colitis There were some superficial aphthous like ulceration seen in the hepatic flexure and the splenic flexure and proximal descending colon area Biopsies were obtained from this area and from the sigmoid colon. Patient had a 2 mm benign-appearing proximal descending colon polyp that was removed by cold biopsy forceps There was another 2 mm benign-appearing sigmoid polyp that was seen and removed by cold biopsy forceps On retroflexion and straight on view there was trace to 1+ internal hemorrhoids The patient tolerated the procedure well without difficulty. WITHDRAWAL TIME: 12 minutes QUALITY OF THE PREP: [place] Bowel Prep score: 8. COMPLICATIONS : None SPECIMENS: Random colon biopsies Descending colon polyp Sigmoid polyp DISPOSITION: Transfer back to the floor Stable PLAN: 1. Repeat colonoscopy base on biopsy result likely in five years 2. Resume GI soft diet advance as tolerated 3. Bentyl 10 mg p.o. three times a day as needed for pain 4. Discontinue aspirin NSAIDs smoking alcohol 5. Outpatient follow up with me to review results and discuss further management 6. If symptoms persist consider trial of mesalamine and budesonide Condition at Discharge: Stable Final Diagnosis/Problems List Sepsis due to colitis Intractable abdominal pain due to above Superficial aphthous ulcers at hepatic flexure, splenic flexure and descending colon 2mm polyps in descending colon and sigmoid colon, likely benign Internal hemorrhoids Rheumatoid arthritis History of depression Discharge Disposition: Home Discharge Instruct/Medications Diet: Regular Activity: No Restrictions, As Tolerated Follow Up/Referral: Outpatient follow up with GI Follow up with PCP in 1 week Medications: As per EHR New Medications: Dicyclomine Hcl (Bentyl Capsule) 10 Mg Cp 10 MG PO QID PRN for 30 Days, #90 CAP 2 Refills Mesalamine (Delzicol) 400 Mg Cap 800 MG PO TID for 30 Days, #90 CAP 3 Refills Pantoprazole Sodium Sesquihydr (Pantoprazole Sodium) 40 Mg Tab 40 MG PO DAILY@0600 for 30 Days, #30 TAB 3 Refills Scheduled Budesonide (Uceris), 9 MG OR DAILY Cephalexin Monohydrate (Cephalexin), 1 CAP PO TID Cephalexin Monohydrate (Cephalexin), 1 CAP PO TID Clobetasol Propionate (Clobetasol Propionate), 1 APPLIC TOP BID Mesalamine (Delzicol), 800 MG PO TID Methylprednisolone (Medrol Dosepak), 4 MG PO UD Oxycodone W/ Acetaminophen (Percocet 5/325MG), 1 TAB PO QID Pantoprazole Sodium Sesquihydr (Pantoprazole Sodium), 40 MG PO DAILY@0600 Scheduled PRN Dicyclomine Hcl (Bentyl Capsule), 10 MG PO QID PRN Discharge Statement: "Patient was advised to return to the ER or call 911 if any headaches, dizziness, shortness of breath, chest pain, abdominal pain, bleeding, fevers, or worsening of medical condition. Patient was counseled about treatment plan, medications, possible side effects, patientverbalized understanding. All questions were answered to the best of my ability. This discharge took greater then 30 minutes in planning, reviewing documentation, counseling the patient, and discussing with other team members." ASSESSMENT ASSESSMENT Assessment Sepsis due to colitis Intractable abdominal pain due to above Superficial aphthous ulcers at hepatic flexure, splenic flexure and descending colon 2mm polyps in descending colon and sigmoid colon, likely benign Internal hemorrhoids Rheumatoid arthritis History of depression Date of Service: May 05, 2025 Billing Provider: ANDREA REYES MD Common Visit Codes: 65847-UCW/OBS DISCH DAY >30min DARIO HILL RESIDENT May 05, 2025 12:55 ANDREA REYES MD May 06, 2025 06:40
[2025-05-05] MEDS ORDERED: BUDE9TAB OR (13:58)
--- NOTE | 2025-05-05 18:16 | DVHPN2 ---
Progress Note - Dictate Date Seen: May 05, 2025 (Late entryTime of visit 2:00 p.m.) Medical Necessity Reason Pt with a Central, PICC or Fol: No Subjective No new complaints Abdominal pain improving Stool for WBC and occult blood was negative Leukocytosis is improving IBD panel negative for PANCA and PASCA Colonoscopy revealed minimal nonspecific colitis and some benign polyps that were removed vital signs Vital Sign Date Time Temp Pulse Resp B/P (MAP) Pulse Ox O2 Delivery O2 Flow Rate FiO2 05/05/25 12:39 97.5 65 20 144/89 (107) 99 97.5 05/05/25 08:00 Room Air* 0 21 Total Intake and Output 05/04/25 05/04/25 05/05/25 15:00 23:00 07:00 Intake Total 275 ml 100 ml 1180 ml Output Total 0 ml 0 ml Balance 275 ml 100 ml 1180 ml objective Gen - no pallor, no scleral icterus Skin - Patients skin is warm and dry. Small scaly lesions around the neck and the upper back and in the scalp HEENT - normocephalic, atraumatic, dry mucous membranes. Neck - supple, no lymphadenopathy Pulmonary - B/L clear breath sounds cardiovascular - regular S1,S2 heard GI - soft abdomen with tenderness to palpation in the lower abdominal quadrants. Bowel sounds normoactive. Neurological - Patient is alert and oriented x4. No motor or sensory weakness laboratory and microbiology Laboratory Tests 05/05/25 04:41 05/03/25 05:27 Test 05/05/25 04:41 Range/Units Serum Glucose 84 74-106 mg/dL Problems(with codes): (1) Leukocytosis (2) Abdominal pain (3) Colitis Prognosis PLAN: 1. Repeat colonoscopy base on biopsy result likely in five years 2. Resume GI soft diet advance as tolerated 3. Bentyl 10 mg p.o. three times a day as needed for pain 4. Discontinue aspirin NSAIDs smoking alcohol 5. Outpatient follow up with me to review results and discuss further management 6. Trial of mesalamine and if symptoms persist consider trial of budesonide Dietary Evaluation Review Comments: Nutrition Recommendation: 1) Consider soft diet 2) Monitor PO intake, lab values, weight trend, and I/O Expected Outcomes/Goals: GI symptoms to improve Intake to meet >75% estimated needs FU 3-5 days Plan discussed with: Patient CALE RIVERA MD May 05, 2025 18:16
== END 2025-05-05 14:26 | disposition home or self-care (01) | DRG 720 ==
LOC: ER 14:20 → OVERFLOW 18:08 → CENTRAL 20:43
PROVIDERS: ADMIT Internal Medicine
PROC: 0DBL8ZX Excision of Transverse Colon, Via Natural or Artificial Opening Endoscopic, Diagnostic (ICD-10-PCS; 2025-05-04)
PROC: 0DBN8ZX Excision of Sigmoid Colon, Via Natural or Artificial Opening Endoscopic, Diagnostic (ICD-10-PCS; 2025-05-04)
PROC: 0DBM8ZZ Excision of Descending Colon, Via Natural or Artificial Opening Endoscopic (ICD-10-PCS; 2025-05-04)
PROC: 0DBN8ZZ Excision of Sigmoid Colon, Via Natural or Artificial Opening Endoscopic (ICD-10-PCS; 2025-05-04)
PROC: 0DBM8ZX Excision of Descending Colon, Via Natural or Artificial Opening Endoscopic, Diagnostic (ICD-10-PCS; principal; 2025-05-04 15:19)
DX: A41.9 Sepsis, unspecified organism (principal); A04.9 Bacterial intestinal infection, unspecified; F32.A Depression, unspecified; M06.9 Rheumatoid arthritis, unspecified; F17.210 Nicotine dependence, cigarettes, uncomplicated; K59.00 Constipation, unspecified; K63.5 Polyp of colon; K64.8 Other hemorrhoids; K12.0 Recurrent oral aphthae; Z83.3 Family history of diabetes mellitus; Z82.49 Family history of ischemic heart disease and other diseases of the circulatory system
CPT/HCPCS: 36415; 45380; 45384; 71045; 74176; 76830; 76856; 80048; 80053; 80307; 81001; 82270; 82378; 82705; 83605; 83690; 84443; 84702; 85025; 85048; 85610; 86038; 86256; 86671; 86703; 87040; 87045; 87177; 87427; 93005; 96361; 96365; 96368; G0378; J1885; J1956; J2250; J2405; J2470; J2704; J3490